=== PATIENT | male | born 1940 | race Caucasian/White ===

== ENCOUNTER → 2016-09-30 | Outpatient (CLI) | payer MEDICARE, BC ==
--- NOTE | 2016-09-30 14:46 | FL ---
EXAMINATION TYPE: FL barium swallow DATE OF EXAM: 09/30/2016 CLINICAL HISTORY: Dysphagia TECHNIQUE: A single contrast exam performed COMPARISON: None FINDINGS: The esophagus shows normal motility and emptying into the stomach. There is no hiatal herni a, however, there is gastroesophageal reflux. There are tertiary contractions of esophagus compatible with dysmotility. No intraluminal filling defect or obstruction. IMPRESSION: 1. Dysmotility 2. Mild to moderate gastroesophageal reflux
--- NOTE | 2016-09-30 16:34 | CT ---
EXAMINATION TYPE: CT chest wo con DATE OF EXAM: 09/30/2016 COMPARISON: NONE HISTORY: Sarcoidosis CT DLP: 1206 mGycm. Automated Exposure Control for Dose Reduction was Utilized. TECHNIQUE: CT scan of the thorax is performed without IV contrast. FINDINGS: There is subpleural nodularity and pleural based thickening bilaterally the nodules measuri ng less than 5 mm. Areas of scattered subsegmental consolidation suggestive of scar or atelectasis. B asilar bronchiectasis noted. No consolidative pneumonia or pleural effusion. There is very mild inter lobular septal thickening at the lung base. No suspicious pulmonary nodules. Calcifications in the hi lum and mediastinum likely related to previous granulomatous disease. Hypertrophic and degenerative change of the spine. Coronary artery calcification seen. Indeterminate right renal lesion by noncontrast technique IMPRESSION: 1. Subsegmental areas of consolidation likely on the basis of scar or atelectasis. 2. Calcifications of multiple lymph nodes correlate for granulomatous disease 3. Basilar bronchiectasis. 4. minimal interlobular septal thickening compatible with minimal interstitial lung disease. 5. Indeterminate right renal lesion by noncontrast technique. Hyperdense 8 mm lesion anterior pole le ft kidney likely related to hemorrhagic cyst. Confirm with ultrasound.
== END | disposition home or self-care (01) ==
LOC: RADCTMAIN 12:49
PROVIDERS: ATTEND Family Medicine
DX: K21.9 Gastro-esophageal reflux disease without esophagitis (principal); J47.9 Bronchiectasis, uncomplicated; R91.8 Other nonspecific abnormal finding of lung field
CPT/HCPCS: 71250; 74220

== ENCOUNTER → 2016-10-21 | Outpatient (CLI) | payer MEDICARE, BC ==
--- NOTE | 2016-10-21 15:35 | US ---
EXAMINATION TYPE: US kidneys/renal and bladder DATE OF EXAM: 10/21/2016 COMPARISON: NONE CLINICAL HISTORY: 76-year-old male [id number] DISORDERS OF KIDNEY AND URETER. TECHNIQUE: Multiple sonographic images of the kidneys and bladder are obtained. FINDINGS: Right Kidney: 1.2 x 6.4 x 7.6 cm without hydronephrosis. A few scattered cysts are present, largest measuring up to 4.1 cm at the lower pole. Left Kidney: 14.0 x 6.2 x 8.3 cm without hydronephrosis. Scattered cysts are present, largest measuri ng 1.8 cm at the upper pole. This dominant cyst appears complex with internal septation possibly some mural-based nodularity. No gross abnormality of the urine distended bladder. Neither ureteral jet is seen during the course o f the exam. IMPRESSION: 1. No hydronephrosis. 2. Bilateral renal cysts measuring up to 4.1 cm. 3. A complex renal cyst is present at the left upper pole. There is an internal septation and questio nable mural-based nodularity. Recommend 3 month follow-up ultrasound to reassess.
== END | disposition home or self-care (01) ==
LOC: RADUSWWP 14:40
PROVIDERS: ATTEND Family Medicine
DX: N28.1 Cyst of kidney, acquired (principal)
CPT/HCPCS: 76770

== ENCOUNTER 2023-10-23 19:28 | Inpatient (IN) | payer MEDICARE, BC ==
[2023-10-23] MEDS: ACETAMINOPHEN TAB 500 MG TAB PO STA (21:15)
[2023-10-23] MEDS: hydrALAZINE HCL 20 MG/ML 1 ML VIAL IVP STA ×2 (21:16→22:48)
[2023-10-23] MEDS: SODIUM CHLORIDE 0.9% 500 ML 500 ML IV STA (21:16)
[2023-10-23 21:20] LABS: Basophils % (A) 0 %; Eosinophils # (A) 0.3 k/uL (0-0.7); Eosinophils % (A) 3 %; HCT 37.3 % (39.0-53.0); HGB 11.7 gm/dL (13.0-17.5); Lymphocytes # (A) 1.7 k/uL (1.0-4.8); Lymphocytes % (A) 20 %; MCH 30.7 pg (25.0-35.0); MCHC 31.3 g/dL (31.0-37.0); MCV 98.3 fL (80.0-100.0); Mean Platelet Volume 7.9; Monocytes # (A) 0.6 k/uL (0-1.0); Monocytes % (A) 8 %; Neutrophils # (A) 5.3 k/uL (1.3-7.7); Neutrophils % (A) 66 %; Platelet Count 257 k/uL (150-450); RBC 3.79 m/uL (4.30-5.90); RDW 14.1 % (11.5-15.5); WBC 8.1 k/uL (3.8-10.6)
[2023-10-23 21:54] LABS: ALT 12 U/L (4-49); AST 22 U/L (17-59); African American GFR (CKD) 88 (>60 ml/min/1.73 sqM); Albumin 3.6 g/dL (3.5-5.0); Alkaline Phosphatase 52 U/L (38-126); Anion Gap 8 mmol/L; Blood Urea Nitrogen 32 mg/dL (9-20); Calcium 8.9 mg/dL (8.4-10.2); Carbon Dioxide 25 mmol/L (22-30); Chloride 106 mmol/L (98-107); Glucose 85 mg/dL (74-99); Non-African American GFR(CKD) 76 (>60 ml/min/1.73 sqM); Potassium 4.3 mmol/L (3.5-5.1); Sodium 139 mmol/L (137-145); Total Bilirubin 0.4 mg/dL (0.2-1.3); Total Protein 5.9 g/dL (6.3-8.2)
--- NOTE | 2023-10-23 22:45 | CT ---
EXAMINATION TYPE: CT brain wo con DATE OF EXAM: 10/23/2023 COMPARISON: None INDICATION: Left temporal WIGGINS DLP: Combined DLP of 1875.9 mGycm, Automated exposure control for dose reduction was used. CONTRAST: None CT of the brain is performed utilizing 3 mm thick sections through the posterior fossa and 3 mm thick sections through the remaining calvarium. Study is performed within 24 hours of arrival to the hosp ital. No abnormal hyperdensity is present to suggest an acute intracranial hemorrhage. No mass lesion is evident. No acute infarcts are evident. Periventricular white matter hypodensity is present, likely on the bas is of chronic white matter ischemic changes. Ventricles and sulci are prominent for the patient age. Paranasal sinuses and mastoid air cells within the [id number] are clear. IMPRESSION: 1. Mild atrophy with periventricular white matter ischemic type changes. 2. No acute intracranial process. Follow-up MRI can be performed as clinically indicated
[2023-10-23] MEDS: MORPHINE SULFATE 2 MG/ML SYRINGE IVP STA (22:48)
--- NOTE | 2023-10-23 22:51 | CT ---
EXAMINATION TYPE: CT angio head DATE OF EXAM: 10/23/2023 HISTORY: Left temporal WIGGINS. ABC COMPARISON: None CT DLP: Combined DLP of 1875.9 mGycm. Automated Exposure Control for Dose Reduction was Utilized. TECHNIQUE: CTA scan of the neck is performed with IV Contrast, patient injected with 65 cc mL of Iso leif 370, axial images are obtained, coronal and sagittal reformatted images are reviewed. Three-D rec onstructed images are created on an independent workstation and reviewed. Source images are reviewed . FINDINGS: Cervical of [place]: Vertebral basilar system appears normal. Posterior cerebral vasculature is unrema rkable. Internal carotid arteries bifurcate normally into A1 and M1 segments. A2 segments are normal. The anterior communicating artery is patent. The right posterior communicating artery is patent. The left posterior communicating artery is absent. Other: Some sphenoid sinusitis may be present. IMPRESSION: 1. Normal [place] of [place] NASCET criteria was used in interpretation of this exam?
--- NOTE | 2023-10-23 23:44 | ED ---
Headache HPI - General Chief Complaint: Headache Stated Complaint: L head pain Time Seen by Provider: 10/23/23 19:53 Mode of arrival: ambulatory Limitations: no limitations - History of Present Illness Initial Comments: 83-year-old male presenting with chief complaint of headache. Pain has been ongoing for about 2 weeks. It is in the left temporal region. He states that it is a throbbing pain. He has been taking Tylenol with no relief. No nausea or vomiting. Patient has history of macular degeneration and glaucoma and at baseline has poor vision, states that he does not notice any acute changes. No new dizziness. No numbness or tingling no fever. No URI-like symptoms. Does not get worse with chewing. He has had a cough recently and has been spitting up foamy sputum. Admits to shortness of breath, no chest pain. - Related Data Allergies Allergy/AdvReac Type Severity Reaction Status Date / Time Unable to Assess Allergy Verified 10/23/23 19:45 Review of Systems ROS Statement: Those systems with pertinent positive or pertinent negative responses have been documented in the HPI. ROS Other: All systems not noted in ROS Statement are negative. Past Medical History Past Medical History: Hypertension Additional Past Medical History / Comment(s): macular degeneration , chronic uti History of Any Multi-Drug Resistant Organisms: None Reported Past Surgical History: Orthopedic Surgery Smoking Status: Never smoker Past Alcohol Use History: None Reported Past Drug Use History: None Reported General Exam Limitations: no limitations General appearance: alert, in no apparent distress Head exam: Present: atraumatic, normocephalic Eye exam: Present: normal appearance, PERRL, EOMI Pupils: Present: normal accommodation Neck exam: Present: normal inspection. Absent: meningismus Respiratory exam: Present: normal lung sounds bilaterally. Absent: respiratory distress, wheezes, rales, rhonchi, stridor Cardiovascular Exam: Present: regular rate, normal rhythm, normal heart sounds. Absent: systolic murmur, diastolic murmur, rubs, gallop, clicks Neurological exam: Present: alert, oriented X3 Psychiatric exam: Present: normal affect, normal mood Skin exam: Present: warm, dry Course Vital Signs 10/23/23 10/23/23 10/23/23 19:41 21:25 21:30 Temperature 97.4 F L Pulse Rate 77 74 Respiratory 20 20 Rate Blood Pressure 201/77 197/90 197/93 O2 Sat by Pulse 95 94 L 94 L Oximetry 10/23/23 10/23/23 10/23/23 21:45 22:00 22:30 Temperature Pulse Rate 71 Respiratory 20 Rate Blood Pressure 199/95 194/83 198/88 O2 Sat by Pulse 95 94 L 96 Oximetry 10/23/23 10/24/23 10/24/23 22:45 00:00 00:59 Temperature Pulse Rate 76 78 78 Respiratory 16 26 H 20 Rate Blood Pressure 148/70 144/67 165/79 O2 Sat by Pulse 98 94 L 94 L Oximetry 10/24/23 10/24/23 01:56 02:01 Temperature Pulse Rate 79 87 Respiratory 19 19 Rate Blood Pressure 174/80 172/81 O2 Sat by Pulse 95 95 Oximetry Medical Decision Making - Medical Decision Making 83-year-old male presenting with chief complaint of headache located in the left temporal region. Has been ongoing for 2 weeks. No acute vision changes. History and physical exam are conducted. Negative CT of the brain without contrast and CTA. CRP is 1.0, ESR is sent out. Decreases the likelihood of temporal arteritis. During his visit the patient became progressively short of breath. Denies chest pain. Chest x-ray was obtained which shows cardiomegaly and effusion. Patient has been having frothy sputum and lower extremity swelling. BNP 8390. Presentation consistent with CHF. Patient has no history of CHF according to his son. Patient was treated with 40 mg Lasix. He will be admitted. Patient and his son are in agreement with this plan. I discussed this case with my attending Dr. Arreguin. Was pt. sent in by a medical professional or institution (, PA, PLANT OPERATOR, urgent care, hospital, or prison...) When possible be specific @ -No Did you speak to anyone other than the patient for history (EMS, parent, family, police, friend...)? What history was obtained from this source @ -History supplemented by the patient's son Did you review nursing and triage notes (agree or disagree)? Why? @ -I reviewed and agree with nursing and triage notes Were old charts reviewed (outside hosp., previous admission, EMS record, old EKG, old radiological studies, urgent care reports/EKG's, prison records)? Report findings @ -No old charts were reviewed Differential Diagnosis (chest pain, altered mental status, abdominal pain women, abdominal pain men, vaginal bleeding, weakness, fever, dyspnea, syncope, headache, dizziness, GI bleed, back pain, seizure, CVA, palpatations, mental health, musculoskeletal)? @ -MDM Differential Headache: Migraine, tension, cluster, carbon monoxide, central venous thrombosis, pension karma temporal arteritis, acute closure glaucoma, intercranial hemorrhage, mastoiditis, sinusitis, head injury this is not meant to be an all-inclusive list. EKG interpreted by me (3pts min.). @ -EKG shows sinus rhythm ventricular rate 73. OR interval 184. QRS 133. QT 411. QTc 437. X-rays interpreted by me (1pt min.). @ -X-ray shows pulmonary vascular congestion, correlate for mild CHF. Trace bilateral pleural effusions. CT interpreted by me (1pt min.). @ -Brain CT shows mild atrophy with periventricular white matter ischemic type changes. No acute intracranial process. CTA shows normal [place] U/S interpreted by me (1pt. min.). @ -None done What testing was considered but not performed or refused? (CT, X-rays, U/S, labs)? Why? @ -None What meds were considered but not given or refused? Why? @ -None Did you discuss the management of the patient with other professionals (professionals i.e. , PA, PLANT OPERATOR, lab, RT, psych nurse, social work faculty member, supervisor delivery department, teacher, chief privacy officer, returned case inspector)? Give summary @ -I spoke with Dr. Briones who accepted admission Was smoking cessation discussed for >3mins.? @ -No Was critical care preformed (if so, how long)? @ -No Were there social determinants of health that impacted care today? How? (Homelessness, low income, unemployed, alcoholism, drug addiction, transportation, low edu. Level, literacy, decrease access to med. care, skilled nursing, rehab)? @ -No Was there de-escalation of care discussed even if they declined (Discuss DNR or withdrawal of care, Hospice)? DNR status @ -No What co-morbidities impacted this encounter? (DM, HTN, Smoking, COPD, CAD, Cancer, CVA, ARF, Chemo, Hep., AIDS, mental health diagnosis, sleep apnea, morbid obesity)? @ -None Was patient admitted / discharged? Hospital course, mention meds given and route, prescriptions, significant lab abnormalities, going to OR and other pertinent info. @ -Admitted, see above for details Undiagnosed new problem with uncertain prognosis? @ -No Drug Therapy requiring intensive monitoring for toxicity (Heparin, Nitro, Insulin, Cardizem)? @ -No Were any procedures done? @ -No Diagnosis/symptom? @ -CHF Acute, or Chronic, or Acute on Chronic? @ -Acute Uncomplicated (without systemic symptoms) or Complicated (systemic symptoms)? @ -Located Side effects of treatment? @ -No Exacerbation, Progression, or Severe Exacerbation? @ -No Poses a threat to life or bodily function? How? (Chest pain, USA, NH, pneumonia, PE, COPD, DKA, ARF, appy, cholecystitis, CVA, Diverticulitis, Homicidal, Suicidal, threat to staff... and all critical care pts) @ -Yes - Lab Data Result diagrams: 10/23/23 20:44 10/23/23 20:44 Lab Results 10/23/23 10/23/23 10/23/23 Range/Units 20:44 20:44 20:44 WBC 8.1 (3.8-10.6) k/uL RBC 3.79 L (4.30-5.90) m/uL Hgb 11.7 L (13.0-17.5) gm/dL Hct 37.3 L (39.0-53.0) % MCV 98.3 (80.0-100.0) fL MCH 30.7 (25.0-35.0) pg MCHC 31.3 (31.0-37.0) g/dL RDW 14.1 (11.5-15.5) % Plt Count 257 (150-450) k/uL MPV 7.9 Neutrophils % 66 % Lymphocytes % 20 % Monocytes % 8 % Eosinophils % 3 % Basophils % 0 % Neutrophils # 5.3 (1.3-7.7) k/uL Lymphocytes # 1.7 (1.0-4.8) k/uL Monocytes # 0.6 (0-1.0) k/uL Eosinophils # 0.3 (0-0.7) k/uL Basophils # 0.0 (0-0.2) k/uL Sodium 139 (137-145) mmol/L Potassium 4.3 (3.5-5.1) mmol/L Chloride 106 (98-107) mmol/L Carbon Dioxide 25 (22-30) mmol/L Anion Gap 8 mmol/L BUN 32 H (9-20) mg/dL Creatinine 0.92 (0.66-1.25) mg/dL Est GFR (CKD-EPI)AfAm 88 (>60 ml/min/1.73 sqM) Est GFR (CKD-EPI)NonAf 76 (>60 ml/min/1.73 sqM) Glucose 85 (74-99) mg/dL Calcium 8.9 (8.4-10.2) mg/dL Total Bilirubin 0.4 (0.2-1.3) mg/dL AST 22 (17-59) U/L ALT 12 (4-49) U/L Alkaline Phosphatase 52 (38-126) U/L C-Reactive Protein 1.0 H (<1.0) mg/dL NT-Pro-B Natriuret Pep 8390 pg/mL Total Protein 5.9 L (6.3-8.2) g/dL Albumin 3.6 (3.5-5.0) g/dL Disposition Clinical Impression: CHF (congestive heart failure) Disposition: ADMITTED IP TO THIS HOSP Condition: Serious Time of Disposition: 01:31
[2023-10-24] MEDS: traMADol 50 MG TAB PO STA (00:58)
[2023-10-24] MEDS ORDERED: NALOXONE 0.4 MG/ML 1 ML VIAL IV PRN (01:27)
[2023-10-24] MEDS: FUROSEMIDE 10 MG/ML 4 ML VIAL IV STA (01:53)
--- NOTE | 2023-10-24 02:32 | XR ---
EXAM: XR Chest, 2 Views CLINICAL HISTORY: ITS.REASON XR Reason: SOB TECHNIQUE: Frontal and lateral views of the chest. COMPARISON: No relevant prior studies available. FINDINGS: Lungs: Pulmonary vascular congestion, correlate for mild CHF. Trace bilateral pleural effusions. No consolidation. Pleural space: See above. Heart: Cardiomegaly. Mediastinum: Unremarkable. Normal mediastinal contour. Bones/joints: Unremarkable. No acute fracture. IMPRESSION: Pulmonary vascular congestion, correlate for mild CHF. Trace bilateral pleural effusions.
[2023-10-24] MEDS: MELATONIN 5 MG TABLET PO STA (03:03)
[2023-10-24 04:29] LABS: Erythrocyte Sedimentation Rate 22 mm/Hr (0-20)
--- NOTE | 2023-10-24 05:11 | P.HPIM ---
History of Present Illness H&P Date: 10/24/23 Chief Complaint: Shortness of breath Patient is a 83-year-old male with a history of hypertension came to the ER with the complaint of left-sided temporal headache since 3 weeks. Patient had an extensive ER evaluation for left temporal headache including CRP, ESR, CT brain, and CTA head. Investigation is unremarkable and there is decreased likelihood of temporal arteritis, intracranial hemorrhage and/or other intracranial abnormality. patient has been feeling short of breath and fatigue since 3 weeks. Patient reports chest pain, tachycardia, dyspnea upon exertion, orthopnea, and bilateral leg edema. Patient reports mild, intermittent, substernal chest pain worse with physical exertion and resolves with rest. Patient recalls no previous episodes of shortness of breath and chest pain. Patient denies recent hospitalization, recent travel. patient denies cough, diaphoresis, abdominal pain, diarrhea or constipation, urinary issues or weakness and numbness in upper and lower extremities. He is unsure of past history of coronary artery disease and states that his son is better aware of his past medical and surgical history. His son was not present at the time of the interview. EKG done in the ER shows heart rate of 73 bpm, right bundle branch block, poor R wave progression, nonspecific STT wave changes, no QTc prolongation. Chest x-ray done in the ER shows a pulmonary vascular congestion correlating for mild congestive heart failure with trace bilateral pleural effusion. Review of systems: Pertinent positives and negatives as discussed in HPI, a complete review of systems was performed and all other systems are negative. Social history: Tobacco: None Alcohol: None Recreational drugs: None Travel: None Occupation: Retired Family History: None 100 Physical examination: Vital signs reviewed General: non toxic, no distress, appears at stated age, normal weight Derm: no unusual rashes/lesions, warm Head: atraumatic, normocephalic, symmetric Eyes: EOMI, no lid lag, anicteric sclera, pupils equal round reactive to light ENT: Nose and ears atraumatic Neck: No cervical lymphadenopathy, trachea midline, supple Mouth: no lip lesion, mucus membranes moist Cardiovascular: S1S2 reg, no murmur, positive dorsalis pedis pulse bilateral, grade 1 bilateral pitting edema in lower extremities. Lungs: Diminished breath sounds on lower lung bases. no rhonchi, no rales, no accessory muscle use Abdominal: soft, nontender to palpation, no guarding Ext: muscle strength 4 out of 5 in all 4 extremities grossly, no gross muscle atrophy, no contractures, Neuro: CN II-XI grossly intact, no gross focal neuro deficits Psych: Alert, oriented, appropriate affect Assessment/Plan: 83-year-old male with history of hypertension who came to the ER originally for complaint of left-sided temporal headache had an extensive ER evaluation which decreases the likelihood of temporal arteritis, intracranial hemorrhage and or other intracranial abnormality. Patient has been complaining of shortness of breath since 3 weeks associated with mild intermittent chest pain, orthopnea, and bilateral peripheral edema. exertional dyspnea suspected Acute congestive heart failure Chest x-ray shows pulmonary vascular congestion correlating for mild congestive heart failure with trace bilateral pleural effusion IV Lasix 40 mg daily check Echocardiogram , no previous echo in chart for comparison consult Cardiology Continue cardiac monitoring Continue monitoring O2 saturation Check daily weight Fluid restriction 2 L daily proBNP 8390 Supplemental oxygen as needed check trops -Left-sided temporal headache rule out temporal arteritis Neurology consult Elevated ESR [address] angio of the head shows normal [place] CT brain shows no acute intracranial process, no acute intracranial hemorrhage. elevated BP without a diagnosis of hypertension no focal neuro deficits continue to monitor for now patient received couple doses of IV hydralazine in the ED if BP continues to be elevated while inpatient , consider starting antihypertensive meds currently BP is within normal limit s Mild anemia Hemoglobin 11.7 Patient denies GI bleeding Continue to monitor DVT prophylaxis: Lovenox 40 mg subcu daily The patient is admitted with an anticipated more than 2 midnight stay for evaluation of congestive heart failure, and ruling out temporal arteritis CODE STATUS: Full Discussed with: Patient Anticipated discharge place: Home Past Medical History Past Medical History: Hypertension Additional Past Medical History / Comment(s): macular degeneration , chronic uti History of Any Multi-Drug Resistant Organisms: None Reported Past Surgical History: Orthopedic Surgery Smoking Status: Never smoker Past Alcohol Use History: None Reported Past Drug Use History: None Reported Medications and Allergies Allergies Allergy/AdvReac Type Severity Reaction Status Date / Time Unable to Assess Allergy Verified 10/23/23 19:45 Physical Exam Vitals: Vital Signs Temp Pulse Resp BP Pulse Ox 10/24/23 02:01 87 19 172/81 95 10/24/23 01:56 79 19 174/80 95 10/24/23 00:59 78 20 165/79 94 L 10/24/23 00:00 78 26 H 144/67 94 L 10/23/23 22:45 76 16 148/70 98 10/23/23 22:30 71 20 198/88 96 10/23/23 22:00 194/83 94 L 10/23/23 21:45 199/95 95 10/23/23 21:30 197/93 94 L 10/23/23 21:25 74 20 197/90 94 L 10/23/23 19:41 97.4 F L 77 20 201/77 95 Intake and Output 10/23/23 10/23/23 10/24/23 14:59 22:59 06:59 Intake Total 500 Output Total 1450 Balance -950 Intake: Intake, IV Titration 500 Amount Sodium Chloride 0.9% 500 500 ml 500 ml @ 999 mls/hr IV .Q31M STA Rx#:[id number] Output: Urine 1450 Other: Weight 99.337 kg Results CBC & Chem 7: 10/23/23 20:44 10/23/23 20:44 Labs: Abnormal Lab Results - Last 24 Hours (Table) 10/23/23 10/23/23 Range/Units 20:44 20:44 RBC 3.79 L (4.30-5.90) m/uL Hgb 11.7 L (13.0-17.5) gm/dL Hct 37.3 L (39.0-53.0) % ESR 22 H (0-20) mm/Hr BUN 32 H (9-20) mg/dL C-Reactive Protein 1.0 H (<1.0) mg/dL Total Protein 5.9 L (6.3-8.2) g/dL Assessment and Plan Assessment: I have seen and evaluated the patient today. I Discussed the case with the resident and agree with the resident's findings I edited the assessment and plan as necessary as documented in the resident's note.
[2023-10-24] MEDS ORDERED: FUROSEMIDE 10 MG/ML 4 ML VIAL IV SCH (09:00)
[2023-10-24] MEDS: ASPIRIN 81 MG PO SCH (09:47)
[2023-10-24] MEDS: ENOXAPARIN 40 MG/0.4 ML SYRINGE SQ SCH (09:47)
[2023-10-24] MEDS: FUROSEMIDE 10 MG/ML 4 ML VIAL IV SCH (09:47)
[2023-10-24] MEDS: METOPROLOL TARTRATE 12.5 MG TAB PO SCH (09:47)
--- NOTE | 2023-10-24 10:33 | P.CRDCN ---
History of Present Illness History of present illness: HISTORY OF PRESENT ILLNESS: This is a 83-year-old male with a past medical history significant for hypertension and congestive heart failure. Patient does not follow with a special forces specialist. We have been asked to see the patient in consultation for congestive heart failure. Patient examined at the bedside in the emergency room. There is no family present. The patient states he presented to the hospital with a chief complaint of a headache that has been ongoing for the past 2 to 3 weeks. The patient also reports he has been feeling short of breath which started about 3 to 4 weeks ago. He currently denies any chest pain or pressure. Vital signs are stable. DIAGNOSTICS: - EKG reveals sinus mechanism with no signs of acute ischemia. - Chest xray pulmonary vascular congestion, correlate for mild CHF. Trace bilateral pleural effusions. - Laboratory data: WBC 8.1. Hemoglobin 11.7. Platelet count 257. Sodium 139. Potassium 4.3. BUN 32. Creatinine 0.92. Troponin 0.120. proBNP 8390. - Current home cardiac medications include lisinopril 20 mg daily and Demadex 10 mg daily. REVIEW OF SYSTEMS: At the time of my exam: CONSTITUTIONAL: Denies fever or chills. HEENT: Headache. Denies blurred vision, vision changes, or eye pain. Denies hemoptysis CARDIOVASCULAR: Denies chest pain. Denies orthopnea. Denies PND. Denies palpitations RESPIRATORY: Denies shortness of breath. GASTROINTESTINAL: Denies abdominal pain. Denies nausea or vomiting. HEMATOLOGIC: Denies bleeding disorders. GENITOURINARY: Denies any blood in urine. SKIN: Denies pruitis. Denies rash. PHYSICAL EXAM: VITAL SIGNS: Reviewed. GENERAL: Well-developed in no acute distress. HEENT: Head is normocephalic. Pupils are equal, round. Sclerae anicteric. Mucous membranes of the mouth are moist. Neck supple. No JVD or thyromegaly LUNGS: Respirations even and unlabored. Lungs essentially clear to auscultation bilaterally. HEART: Regular rate and rhythm. S1 and S2 heard. ABDOMEN: Soft. Nondistended. Nontender. EXTREMITIES: Normal range of motion. No clubbing or cyanosis. Peripheral pulses intact. 1+ bilateral lower extremity edema NEUROLOGIC: Awake and alert. Oriented x 3. ASSESSMENT: Headache x 3 weeks, etiology unclear Acute on chronic heart failure, type unknown, echo pending Elevated troponin x 1, suspect type II ME due to oxygen supply and demand mismatch secondary to acute CHF, non-STEMI less likely Hypertension Obesity: BMI 33.3 PLAN: Obtain 2D echo to assess cardiac structure and function Trend troponins. May continue with Lovenox at this time. No need to initiate IV heparin at this time unless troponins trend upward. Begin IV Lasix 40 mg every 12 hours Add aspirin 81 mg daily, atorvastatin 40 mg at night, and metoprolol tartrate 12.5 mg twice a day Neurology has been consulted due to persistent headache. Await recommendations Further recommendations pending patient course Nurse practitioner note has been reviewed by physician. Signing provider agrees with the documented findings, assessment, and plan of care documented by SENIOR RESEARCH MANAGER as a scribe. Past Medical History Past Medical History: Hypertension Additional Past Medical History / Comment(s): macular degeneration , chronic uti History of Any Multi-Drug Resistant Organisms: None Reported Past Surgical History: Orthopedic Surgery Smoking Status: Never smoker Past Alcohol Use History: None Reported Past Drug Use History: None Reported Medications and Allergies Home Medications Medication Instructions Recorded Confirmed Type Brimonidine Tartrate [Alphagan P 1 drop BOTH EYES BID 10/24/23 10/24/23 History 0.2% Ophth Soln] Latanoprost [Latanoprost 0.005%] 1 drop BOTH EYES HS 10/24/23 10/24/23 History Tamsulosin [Flomax] 0.4 mg PO HS 10/24/23 10/24/23 History Timolol 0.25% Ophth Soln [Timoptic 1 drop BOTH EYES BID 10/24/23 10/24/23 History 0.25% Ophth Soln] Torsemide [Demadex] 10 mg PO DAILY 10/24/23 10/24/23 History lisinopriL [Zestril] 20 mg PO DAILY 10/24/23 10/24/23 History Allergies Allergy/AdvReac Type Severity Reaction Status Date / Time Unable to Assess Allergy Verified 10/24/23 09:12 Physical Exam Vitals: Vital Signs Temp Pulse Resp BP Pulse Ox 10/24/23 06:00 98.6 F 68 20 139/73 94 L 10/24/23 02:01 87 19 172/81 95 10/24/23 01:56 79 19 174/80 95 10/24/23 00:59 78 20 165/79 94 L 10/24/23 00:00 78 26 H 144/67 94 L 10/23/23 22:45 76 16 148/70 98 10/23/23 22:30 71 20 198/88 96 10/23/23 22:00 194/83 94 L 10/23/23 21:45 199/95 95 10/23/23 21:30 197/93 94 L 10/23/23 21:25 74 20 197/90 94 L 10/23/23 19:41 97.4 F L 77 20 201/77 95 Intake and Output 10/23/23 10/24/23 10/24/23 22:59 06:59 14:59 Intake Total 500 Output Total 1450 Balance -950 Intake: Intake, IV Titration 500 Amount Sodium Chloride 0.9% 500 500 ml 500 ml @ 999 mls/hr IV .Q31M STA Rx#:[id number] Output: Urine 1450 Other: Weight 99.337 kg Results 10/23/23 20:44 10/23/23 20:44 Cardiac Enzymes 10/23/23 10/24/23 Range/Units 20:44 07:37 AST 22 (17-59) U/L Troponin I 0.120 H* (0.000-0.034) ng/mL CBC 10/23/23 Range/Units 20:44 WBC 8.1 (3.8-10.6) k/uL RBC 3.79 L (4.30-5.90) m/uL Hgb 11.7 L (13.0-17.5) gm/dL Hct 37.3 L (39.0-53.0) % Plt Count 257 (150-450) k/uL Comprehensive Metabolic Panel 10/23/23 Range/Units 20:44 Sodium 139 (137-145) mmol/L Potassium 4.3 (3.5-5.1) mmol/L Chloride 106 (98-107) mmol/L Carbon Dioxide 25 (22-30) mmol/L BUN 32 H (9-20) mg/dL Creatinine 0.92 (0.66-1.25) mg/dL Glucose 85 (74-99) mg/dL Calcium 8.9 (8.4-10.2) mg/dL AST 22 (17-59) U/L ALT 12 (4-49) U/L Alkaline Phosphatase 52 (38-126) U/L Total Protein 5.9 L (6.3-8.2) g/dL Albumin 3.6 (3.5-5.0) g/dL Current Medications Generic Name Dose Route Start Last Admin Trade Name Freq PRN Reason Stop Dose Admin Acetaminophen 650 mg 10/24/23 01:27 Acetaminophen Tab 325 Mg Tab PO Q6HR PRN Mild Pain or Fever > 100.5 Hydrocodone Bitart/Acetaminophen 1 each 10/24/23 01:27 Hydrocodone/Apap 5-325mg 1 Each Tab PO Q4HR PRN Moderate Pain (Scale 4 to 6) Aspirin 81 mg 10/24/23 09:00 Aspirin 81 Mg PO DAILY INDY Atorvastatin Calcium 40 mg 10/24/23 21:00 Atorvastatin 40 Mg Tab PO HS INDY Enoxaparin Sodium 40 mg 10/24/23 09:00 Enoxaparin 40 Mg/0.4 Ml Syringe SQ DAILY INDY Furosemide 40 mg 10/24/23 09:00 Furosemide 10 Mg/Ml 4 Ml Vial IV DAILY INDY Naloxone HCl 0.2 mg 10/24/23 01:27 Naloxone 0.4 Mg/Ml 1 Ml Vial IV Q2M PRN Opioid Reversal Intake and Output 10/23/23 10/24/23 10/24/23 22:59 06:59 14:59 Intake Total 500 Output Total 1450 Balance -950 Intake: Intake, IV Titration 500 Amount Sodium Chloride 0.9% 500 500 ml 500 ml @ 999 mls/hr IV .Q31M STA Rx#:[id number] Output: Urine 1450 Other: Weight 99.337 kg 10/23/23 20:44 10/23/23 20:44
--- NOTE | 2023-10-24 12:58 | P.CNNES ---
History of Present Illness Consult date: 10/24/23 Requesting physician: Russ Briones Reason for Consult: Headache History of Present Illness: Patient is a 83-year-old male came to the hospital yesterday at 7:28 PM for new onset headache. Patient states he has developed headache involving the left catholic region about 6 weeks ago, that extends to the left frontal region as well. He believes that the headache is occurring because he was laying on the left side. He started laying on the right side but the headache still bothers. Even in these 6 weeks it has been off and on. Headache once happens last for couple days, goes away for 3 days and then comes back. He rates his headache 4/10, pressure type headache, denies any nausea or vomiting although he does feel light sensitive but denies any noise sensitivity. No previous history of migraines. He has tried Tylenol. Patient has history of glaucoma and macular degeneration. He takes multiple eyedrops for it. He has not seen a pre billing specialist for last couple years. He believes his vision has been getting worse lately. Patient states in the last 6 weeks he has been noticing more frequent of visual disturbance consisting of seeing blue and red speckled lines or patterns like bricks in his vision. He had it before, but has got worse in the last 6 weeks along with his vision. Patient admits to having some sinus issues, but comes and goes, and once in a while it is worse. He denies any fever. He admits to losing weight of about 50 pounds in the last 2 months from June till end of July while he was living in the [facility] in [place]. At present he lives with his son. Vital signs on arrival blood pressure 201/77, pulse rate 77 temperature 97.4. Repeat blood pressure is still high at 197/90, 197/93 and the most recent blood pressure is 160/79. Blood test shows normal CBC with slightly decreased hemoglobin 11.7. CMP is normal. Troponin is mildly elevated 0.120. ESR 22, CRP 1.0/1.0. CT head showed mild atrophy with periventricular white matter ischemic type changes. No acute intracranial process. Follow-up MRI can be performed as clinically indicated. I personally reviewed CT head, agree with the findings. However on my review, there is evidence of an acute left sphenoid sinusitis. There is large polyp in the left maxillary sinus as well. This is a new finding as compared to the last CT head from 09/02/2011. CTA of the head is normal with normal tolowa dee-ni' of [place]. Home medications include lisinopril 20 mg, Demadex 10 mg, Flomax 0.4 mg and multiple eyedrops. Patient denies any jaw claudication. He does have hypertension, denies diabetes. Denies any tobacco or alcohol use. He has been using walker for last couple years and uses it all the time. Review of Systems Constitutional: Denies chills, Denies fever Eyes: bilateral blurred vision, bilateral photophobia, denies decreased vision, denies diplopia, denies pain, denies loss of vision Ears: bilateral: decreased hearing, deny: earache Ears, nose, mouth and throat: Reports headache, Denies vertigo Cardiovascular: Denies chest pain, Denies shortness of breath Respiratory: Reports cough, Denies excessive sputum Gastrointestinal: Denies abdominal pain, Denies diarrhea, Denies nausea, Denies vomiting Musculoskeletal: Reports low back pain, Reports neck pain (Once in a while), Denies myalgias Integumentary: Denies pruritus, Denies rash Neurological: Reports as per HPI Endocrine: Reports fatigue, Reports weight change Past Medical History Past Medical History: Hypertension Additional Past Medical History / Comment(s): macular degeneration , chronic uti History of Any Multi-Drug Resistant Organisms: None Reported Past Surgical History: Orthopedic Surgery Smoking Status: Never smoker Past Alcohol Use History: None Reported Past Drug Use History: None Reported Medications and Allergies Home Medications Medication Instructions Recorded Confirmed Type Brimonidine Tartrate [Alphagan P 1 drop BOTH EYES BID 10/24/23 10/24/23 History 0.2% Ophth Soln] Latanoprost [Latanoprost 0.005%] 1 drop BOTH EYES HS 10/24/23 10/24/23 History Tamsulosin [Flomax] 0.4 mg PO HS 10/24/23 10/24/23 History Timolol 0.25% Ophth Soln [Timoptic 1 drop BOTH EYES BID 10/24/23 10/24/23 History 0.25% Ophth Soln] Torsemide [Demadex] 10 mg PO DAILY 10/24/23 10/24/23 History lisinopriL [Zestril] 20 mg PO DAILY 10/24/23 10/24/23 History Allergies Allergy/AdvReac Type Severity Reaction Status Date / Time Unable to Assess Allergy Verified 10/24/23 09:12 Physical Examination - Vital Signs Vital Signs: Vital Signs Temp Pulse Resp BP Pulse Ox 10/24/23 09:44 71 18 160/79 94 L 10/24/23 06:00 98.6 F 68 20 139/73 94 L 10/24/23 02:01 87 19 172/81 95 10/24/23 01:56 79 19 174/80 95 10/24/23 00:59 78 20 165/79 94 L 10/24/23 00:00 78 26 H 144/67 94 L 10/23/23 22:45 76 16 148/70 98 10/23/23 22:30 71 20 198/88 96 10/23/23 22:00 194/83 94 L 10/23/23 21:45 199/95 95 10/23/23 21:30 197/93 94 L 10/23/23 21:25 74 20 197/90 94 L 10/23/23 19:41 97.4 F L 77 20 201/77 95 Intake and Output 10/23/23 10/24/23 10/24/23 22:59 06:59 14:59 Intake Total 500 Output Total 1450 Balance -950 Intake: Intake, IV Titration 500 Amount Sodium Chloride 0.9% 500 500 ml 500 ml @ 999 mls/hr IV .Q31M STA Rx#:[id number] Output: Urine 1450 Other: Weight 99.337 kg Patient is an elderly male, very pleasant, in no acute distress. Patient is alert awake oriented to time place and person. Speech and language functions are normal. Patient can name and repeat very well. No aphasia or dysarthria. Attention, concentration and fund of knowledge is adequate. On cranial nerve examination, pupils are surgical from previous cataract surgery and are equal, round and reacting to light, visual ulrich are full on confrontation, with no neglect on double simultaneous stimulation. Extraocular muscles are intact, although there is slight restriction of the upgaze, and there is no nystagmus. Face is symmetric, tongue protrudes to the midline. Palatal elevation and sensation normal, hearing is mild to moderately decreased and shoulder shrug normal, facial sensation normal. On muscle strength testing, there is no pronator drift and the strength is normal in arms and legs distally and proximally. Deep tendon reflexes are symmetric quite diminished, no more than 1 all over, and plantars downgoing Sensory to touch is equal with no neglect on double simultaneous stimulation. Cerebellar function showed no ataxia for iwdnld-[id number] testing. No dysdiadochokinesia. No ataxia for [id number] testing on either side. Tone and bulk of muscles normal. Gait deferred.. On general examination, there is no carotid bruit or murmur, S1-S2 audible. Chest is clear on consultation. Abdomen is soft nontender. No organomegaly, bowel sounds present. Peripheral pulses are present. There is moderate peripheral edema. Results - Laboratory Findings CBC and BMP: 10/23/23 20:44 10/23/23 20:44 Abnormal Lab Findings: Abnormal Labs 10/23/23 10/23/23 07 20:44 20:44 07:37 RBC 3.79 L Hgb 11.7 L Hct 37.3 L ESR 22 H BUN 32 H Troponin I 0.120 H* C-Reactive Protein 1.0 H Total Protein 5.9 L Assessment and Plan Assessment: * New onset left temporal headache, that extends to the left frontal region, off and on, for the last 6 weeks. Reasons probably multifactorial as mentioned below. * Patient is also noticing some visual disturbance consisting of seeing speckled red/blue lines or brick patterns in the vision, more frequently in the last 6 weeks. Patient does have history of glaucoma, and has not seen pre billing specialist for the last 2 years. Rule out worsening of glaucoma or other ocular problems. * Uncontrolled hypertension, came with blood pressure 201/77. Uncontrolled hypertension may be associated with headaches. * CT scan also showing new onset left sphenoid sinusitis, which is new finding as compared to the last CT from 2012. Patient does not have significant sinus related symptoms however. * Elevated troponins * Macular degeneration Plan: * Recommend ophthalmology consultation to rule out worsening of glaucoma, or other ocular causes of headache. * ESR 22, CRP 1.0, which is very borderline. * Patient has air-fluid level in the left sphenoid sinus noted on the CT scan. May consider course of antibiotic. * Optimize control of blood pressure to normotensive level. * For elevated troponin, cardiology on board. * Dr. Rodriguez will cover neurology service over the weekend. * Thank you for the consult.
--- NOTE | 2023-10-24 15:21 | CA ---
Transthoracic Echo Report Name: Tono Castaneda Age: 83 Gender: M : 1940 Exam Date: 10/24/2023 08:34 Exam Location: [facility] Ht (in): 68 Wt (lb): 219 Ordering Physician: Mendoza Womack Attending/Referring Phys: Welder/Fitter Mendy [place] RDCS Procedure CPT: Indications: fluid overload Cardiac Hx: Technical Quality: Fair Contrast 1: Total Dose (mL): Contrast 2: Total Dose (mL): MEASUREMENTS (Male / Female) Normal Values 2D ECHO LV Diastolic Diameter PLAX 5.5 cm 4.2 - 5.9 / 3.9 - 5.3 cm LV Systolic Diameter PLAX 4.1 cm IVS Diastolic Thickness 1.8 cm 0.6 - 1.0 / 0.6 - 0.9 cm LVPW Diastolic Thickness 1.9 cm 0.6 - 1.0 / 0.6 - 0.9 cm LV Relative Wall Thickness 0.7 RV Internal Dim ED PLAX 3.0 cm LVOT Diameter 2.5 cm LA Systolic Diameter LX 5.1 cm 3.0 - 4.0 / 2.7 - 3.8 cm LV Diastolic Volume MOD BP 89.1 cm??? 67 - 155 / 56 - 104 cm??? LV Systolic Volume MOD BP 29.3 cm??? - 58 / 19 - 49 cm??? LV Ejection Fraction MOD BP 67.1 % >= 55 % LV Cardiac Index MOD BP 1914.7 cm???/min???m??? LV Diastolic Volume MOD 4C 114.0 cm??? LV Systolic Volume MOD 4C 55.8 cm??? LV Ejection Fraction MOD 4C 51.0 % LV Cardiac Index MOD 4C 1862.7 cm???/min???m??? LV Diastolic Length 4C 9.7 cm LV Systolic Length 4C 8.1 cm LV Diastolic Volume MOD 2C 84.3 cm??? LV Systolic Volume MOD 2C 40.3 cm??? LV Ejection Fraction MOD 2C 52.2 % LV Cardiac Index MOD 2C 1408.9 cm???/min???m??? LV Diastolic Length 2C 9.6 cm LV Systolic Length 2C 7.8 cm LA Volume 67.4 cm??? - 58 / 22 - 52 cm??? LA Volume Index 30.4 cm???/m??? 16 - 28 cm???/m??? M-MODE Aortic Root Diameter MM 4.2 cm AV Cusp Separation MM 2.6 cm DOPPLER AV Peak Velocity 208.5 cm/s AV Peak Gradient 17.4 mmHg AV Mean Velocity 133.4 cm/s AV Mean Gradient 8.2 mmHg AV Velocity Time Integral 46.6 cm AI Peak Velocity 343.3 cm/s AI Peak Gradient 47.1 mmHg AI Pressure Half Time 433.1 ms LVOT Peak Velocity 117.6 cm/s LVOT Peak Gradient 5.5 mmHg LVOT Velocity Time Integral 24.4 cm LVOT Stroke Volume 115.9 cm??? LVOT Stroke Volume Index 54.6 ml/m??? LVOT Cardiac Index 3712.1 cm???/min???m??? AV Area Cont Eq vti 2.5 cm??? AV Area Cont Eq pk 2.7 cm??? MV Area PHT 2.4 cm??? Mitral E Point Velocity 66.6 cm/s Mitral A Point Velocity 141.0 cm/s Mitral E to A Ratio 0.5 MV Deceleration Time 316.6 ms TR Peak Velocity 252.5 cm/s TR Peak Gradient 25.5 mmHg Right Ventricular Systolic Press 30.0 mmHg FINDINGS Left Ventricle Left ventricular ejection fraction is estimated at 50-55 %. Left ventricular cavity size normal. Severe concentric left ventricular hypertrophy. No obvious regional wall motion abnormalities. Right Ventricle Normal right ventricular size and function. Right ventricular systolic pressure within normal limits. Right Atrium Normal right atrial size. No right atrial thrombus or mass seen. Left Atrium Moderately increased left atrial diameter. Mildly increased left atrial volume. Mildly increased left atrial area. Mitral Valve Mitral valve thickened. Mitral annular calcification. No evidence for mitral valve prolapse. No mitral stenosis. No mitral regurgitation. Aortic Valve Trileaflet aortic valve. Aortic valve sclerosis. Mild aortic stenosis with a peak gradient of 17 mmHg and a mean gradient of 8 mmHg. Mild aortic regurgitation. Tricuspid Valve Structurally normal tricuspid valve. Mild tricuspid regurgitation. Pulmonic Valve Pulmonic valve not well visualized. No pulmonic regurgitation. Pericardium Small pericardial effusion. Aorta Moderate aortic dilatation at the level of the sinuses of valsalva 42 mm CONCLUSIONS Left ventricular ejection fraction 50-55% Severe increased left ventricular wall thickness Mild to moderately dilated left atrium No mitral regurgitation Mild aortic stenosis Mild tricuspid regurgitation Small pericardial effusion without tamponade physiology Previewed by: Dr. Sage Persaud DO (Electronically Signed) Final Date: 24 October 2023 15:20
[2023-10-24] MEDS: AZITHROMYCIN 500 MG TAB PO SCH (17:32)
[2023-10-24] MEDS: HYDROcodone/APAP 5-325MG 1 EACH TAB PO PRN (22:31)
[2023-10-24] MEDS: lisinopriL 20 MG TAB PO SCH (22:32)
[2023-10-24] MEDS: ATORVASTATIN 40 MG TAB PO SCH (22:32)
[2023-10-24] MEDS: TAMSULOSIN 0.4 MG CAP.ER.24H PO SCH (22:32)
[2023-10-24] MEDS: BRIMONIDINE TARTRATE 0.2% DROPS 5 ML BTL BOTH EYES SCH (22:33)
[2023-10-24] MEDS: TIMOLOL 0.25% OPHTH DROPS 5 ML BTL BOTH EYES SCH (22:33)
[2023-10-24] MEDS: LATANOPROST 0.005% OPHTH DROPS 2.5 ML BTL BOTH EYES SCH (22:33)
[2023-10-25] MEDS: ACETAMINOPHEN TAB 325 MG TAB PO PRN (00:35)
[2023-10-25 07:23] LABS: African American GFR (CKD) >90 (>60 ml/min/1.73 sqM); Anion Gap 4 mmol/L; Blood Urea Nitrogen 26 mg/dL (9-20); Calcium 8.9 mg/dL (8.4-10.2); Carbon Dioxide 30 mmol/L (22-30); Chloride 102 mmol/L (98-107); Glucose 82 mg/dL (74-99); Non-African American GFR(CKD) 88 (>60 ml/min/1.73 sqM); Potassium 4.1 mmol/L (3.5-5.1); Sodium 136 mmol/L (137-145)
[2023-10-25 08:46] VITALS: TEMP 97.3
--- NOTE | 2023-10-25 10:59 | P.PN ---
Subjective HISTORY OF PRESENT ILLNESS: This is a 83-year-old male with a past medical history significant for hypertension and congestive heart failure. Patient does not follow with a hospice clinical supervisor. We have been asked to see the patient in consultation for congestive heart failure. Patient examined at the bedside in the emergency room. There is no family present. The patient states he presented to the hospital with a chief complaint of a headache that has been ongoing for the past 2 to 3 weeks. The patient also reports he has been feeling short of breath which started about 3 to 4 weeks ago. He currently denies any chest pain or pressure. Vital signs are stable. DIAGNOSTICS: - EKG reveals sinus mechanism with no signs of acute ischemia. - Chest xray pulmonary vascular congestion, correlate for mild CHF. Trace bilateral pleural effusions. - Laboratory data: WBC 8.1. Hemoglobin 11.7. Platelet count 257. Sodium 139. Potassium 4.3. BUN 32. Creatinine 0.92. Troponin 0.120. proBNP 8390. - Current home cardiac medications include lisinopril 20 mg daily and Demadex 10 mg daily. 10/25/2023 Patient examined this morning at bedside. Patient continues to report a headache. He denies chest pain or pressure. He states his shortness of breath has returned back to his baseline. He remains on IV diuretics. Echocardiogram completed revealing ejection fraction 50 to 55% with mild aortic stenosis PHYSICAL EXAM: VITAL SIGNS: Reviewed. GENERAL: Well-developed in no acute distress. HEENT: Head is normocephalic. Pupils are equal, round. Sclerae anicteric. Mucous membranes of the mouth are moist. Neck supple. No JVD or thyromegaly LUNGS: Respirations even and unlabored. Lungs essentially clear to auscultation bilaterally. HEART: Regular rate and rhythm. S1 and S2 heard. ABDOMEN: Soft. Nondistended. Nontender. EXTREMITIES: Normal range of motion. No clubbing or cyanosis. Peripheral pulses intact. 1+ bilateral lower extremity edema NEUROLOGIC: Awake and alert. Oriented x 3. ASSESSMENT: Headache x 3 weeks, etiology unclear Acute on chronic heart failure with preserved EF 50 to 55% Mild aortic stenosis Elevated troponins, suspect type II PR due to oxygen supply and demand mismatch secondary to acute CHF, non-STEMI less likely Hypertension Obesity: BMI 33.3 PLAN: Neurology following for persistent headache Discontinue IV Lasix. Begin Demadex 20 mg starting tomorrow Continue additional cardiac medications Patient currently stable from a cardiac perspective Further recommendations pending patient course Nurse practitioner note has been reviewed by physician. Signing provider agrees with the documented findings, assessment, and plan of care documented by NET MAKER as a scribe. Objective - Vital Signs Vital signs: Vital Signs Temp 97.3 F L 10/25/23 08:46 Pulse 74 10/25/23 08:46 Resp 16 10/25/23 08:46 BP 107/53 10/25/23 08:46 Pulse Ox 94 L 10/25/23 08:46 FiO2 Intake & Output 10/24/23 10/25/23 10/25/23 18:59 06:59 18:59 Output Total 1999 1100 400 Balance -19991100 400 Weight 99.1 kg Output: Urine 1999 1099 400 Other: Voiding Method External Catheter Toilet Urinal - Labs CBC & Chem 7: 10/23/23 20:44 10/25/23 06:49 Labs: Abnormal Lab Results - Last 24 Hours (Table) 10/24/23 10/24/23 10/25/23 Range/Units 10:23 14:24 06:49 Sodium 136 L (137-145) mmol/L BUN 26 H (9-20) mg/dL Troponin I 0.107 H* 0.082 H* (0.000-0.034) ng/mL
[2023-10-25 11:17] VITALS: BP 170/74; PULSE 63; RESP 17
--- NOTE | 2023-10-25 11:43 | P.DS ---
Providers Date of admission: 10/24/23 01:29 Discharge Diagnosis: Headache Blurry vision Heart failure with preserved ejection fraction Glaucoma Macular degeneration Sinusitis Hospital Course: Patient is a 83-year-old male with a history of hypertension, glaucoma, macular degeneration came to the ER with the complaint of left-sided temporal headache since 3 weeks. Patient had an extensive ER evaluation for left temporal headache including CRP, ESR, CT brain, and CTA head. Investigation is unremarkable and there is decreased likelihood of temporal arteritis, intracranial hemorrhage and/or other intracranial abnormality. Patient has been feeling short of breath and fatigue since 3 weeks. Patient reports chest pain, tachycardia, dyspnea upon exertion, orthopnea, and bilateral leg edema. Patient reports mild, intermittent, substernal chest pain worse with physical exertion and resolves with rest. Patient recalls no previous episodes of shortness of breath and chest pain. Patient denies recent hospitalization, recent travel. patient denies cough, diaphoresis, abdominal pain, diarrhea or constipation, urinary issues or weakness and numbness in upper and lower extremities. He is unsure of past history of coronary artery disease and states that his son is better aware of his past medical and surgical history. His son was not present at the time of the interview. ED vitals Temp 97.4, pulse 77, respiratory rate 20, blood pressure 201/77, SaO2 95 on room air. EKG done in the ER shows heart rate of 73 bpm, right bundle branch block, poor R wave progression, nonspecific STT wave changes, no QTc prolongation. Chest x-ray done in the ER shows a pulmonary vascular congestion correlating for mild congestive heart failure with trace bilateral pleural effusion. Brain CT showed no acute intracranial process. Head CTA showed normal morongo of [place]. Car diology was consulted, he was placed on IV Lasix for fluid overload. Neurology was consulted to rule out possible temporal arthritis. Patient was admitted for further evaluation. During his stay echocardiogram showed left ventricular ejection fraction 55-55%, severely increased left ventricular wall thickness, mild to moderately dilated left atrium, mild aortic stenosis mild small pericardial effusion without tamponade. While admitted patient was given antibiotic for possible sinus infection which may be the cause of his headache due to noted facial tenderness on physical exam. He was placed on strict intake and output to assess volume status. During his stay volume status improved. Neurology ruled out temporal arteritis, and suggested to follow-up with ophthalmology. Prescribed guideline directed medical therapy for his diastolic dysfunction. Patient will follow-up with PCP, cardiology and ophthalmology outpatient. Patient is to be discharged home 10/25/2023: Patient seen and examined at bedside. No acute events overnight. Patient states he has been voiding frequently. Volume status improving. Shortness of breath improving. Still says he has headache. Vital signs reviewed and stable. Physical Exam: Vital signs reviewed General: non toxic, no distress, appears at stated age, normal weight Derm: no unusual rashes/lesions, warm Head: atraumatic, normocephalic, symmetric Eyes: EOMI, no lid lag, anicteric sclera, pupils equal round reactive to light ENT: Nose and ears atraumatic Neck: No cervical lymphadenopathy, trachea midline, supple Mouth: no lip lesion, mucus membranes moist Cardiovascular: S1S2 reg, no murmur, positive dorsalis pedis pulse bilateral, grade 1 bilateral pitting edema in lower extremities. Lungs: Diminished breath sounds on lower lung bases. no rhonchi, no rales, no accessory muscle use Abdominal: soft, nontender to palpation, no guarding Ext: muscle strength 4 out of 5 in all 4 extremities grossly, no gross muscle atrophy, no contractures, Neuro: CN II-XI grossly intact, no gross focal neuro deficits Psych: Alert, oriented, appropriate affect A total of 20 minutes of time were spent preparing this complex discharge summary. Patient was discharge on 10/25/2023 at 11:45 AM Expected date of discharge: 10/25/23 Attending physician: Russ Briones MD Consults: 10/24/23 01:27 Consult Physician Urgent Consulting Provider: [facility] Consult Reason/Comments: chf Do you want consulting provider notified?: Yes, Notify in am 10/24/23 07:07 Consult Physician Routine Consulting Provider: Ashley Jarvis Consult Reason/Comments: headache Do you want consulting provider notified?: Yes 10/24/23 14:12 Consult Physician Routine Consulting Provider: Quin Bowman Consult Reason/Comments: History of glaucoma and macular degeneration with worsening vision Do you want consulting provider notified?: Yes Primary care physician: [facility] Course: I have seen and evaluated the patient today. Discussed with the resident and agree with the residents subjective and objective as documented in the resident's note. The assessment and plan was discussed and outlined as below. Headache persistent he does have some tenderness of the maxillary sinus and temporal region. Discussed with Dr. Rodriguez, temporal arteritis is highly unlike ly. Prescribed 1 more day of Azithromycin to complete a total of 3 days. Advised son that Mucinex and Flonase may help as well. He does have an appointment coming up with Dr. Lake next week per his son. Echo shows EF 50-55% with severe concentric LVH. 3.1L urine output over the past 24H on Lasix 40 mg IV BID. Discussed with Stephy ALMONTE, transition to Torsemide 20 mg PO QD, cleared for discharge from Cardiology standpoint. Family is advised fluid restriction and low salt diet. Advised to monitor his BP at home for further titration of BP meds with PCP. Follow up with Dr. Lake as scheduled. Follow up with PCP within 1-2 days of discharge. Plan is for discharge home today. Discharge Diagnosis: Headache likely due to sinusitis Diastolic CHF exacerbation Hypertensive urgency on admission Blurry vision with history of glaucoma and macular degeneration. Troponin elevation, trending down, likely type II [place] This complex discharge took 35 minutes to complete. Patient Condition at Discharge: Stable Plan - Discharge Summary Discharge Rx Participant: No New Discharge Prescriptions: New Torsemide [Demadex] 20 mg PO DAILY #30 tab Metoprolol Tartrate [Lopressor] 12.5 mg PO BID #60 tab Acetaminophen Tab [Tylenol] 650 mg PO Q6HR PRN tab PRN Reason: Mild Pain Or Fever > 100.5 Azithromycin [Zithromax] 500 mg PO DAILY #1 tab Aspirin 81 mg PO DAILY #30 tab Atorvastatin [Lipitor] 40 mg PO HS #30 tab Continue Brimonidine Tartrate [Alphagan P 0.2% Ophth Soln] 1 drop BOTH EYES BID lisinopriL [Zestril] 20 mg PO DAILY Tamsulosin [Flomax] 0.4 mg PO HS Timolol 0.25% Ophth Soln [Timoptic 0.25% Ophth Soln] 1 drop BOTH EYES BID Latanoprost [Latanoprost 0.005%] 1 drop BOTH EYES HS Discontinued Torsemide [Demadex] 10 mg PO DAILY Discharge Medication List Brimonidine Tartrate [Alphagan P 0.2% Ophth Soln] 1 drop BOTH EYES BID 10/24/23 [History] Latanoprost [Latanoprost 0.005%] 1 drop BOTH EYES HS 10/24/23 [History] Tamsulosin [Flomax] 0.4 mg PO HS 10/24/23 [History] Timolol 0.25% Ophth Soln [Timoptic 0.25% Ophth Soln] 1 drop BOTH EYES BID 10/24/23 [History] lisinopriL [Zestril] 20 mg PO DAILY 10/24/23 [History] Acetaminophen Tab [Tylenol] 650 mg PO Q6HR PRN tab 10/25/23 [Rx] Aspirin 81 mg PO DAILY #30 tab 10/25/23 [Rx] Atorvastatin [Lipitor] 40 mg PO HS #30 tab 10/25/23 [Rx] Azithromycin [Zithromax] 500 mg PO DAILY #1 tab 10/25/23 [Rx] Metoprolol Tartrate [Lopressor] 12.5 mg PO BID #60 tab 10/25/23 [Rx] Torsemide [Demadex] 20 mg PO DAILY #30 tab 10/25/23 [Rx] Follow up Appointment(s)/Referral(s): Aakash Lake MD [STAFF PHYSICIAN] - 1 Week (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 Needs complete exam and OCT for eye care. currently using latanoprost nightly, timolol twice daily and brimonidine twice daily. Please call to make an apt. ) Trenton Davenport MD [STAFF PHYSICIAN] - 1 Week (Please call on Friday to schedule an apt. ) Vaughn Montenegro DO [Primary Care Provider] - 1-2 days (Please call to schedule hospital follow up apt. ) Patient Instructions/Handouts: Heart Failure (DC) Activity/Diet/Wound Care/Special Instructions: fluid restriction 2 liters. salt restriction Discharge Disposition: HOME SELF-CARE
--- NOTE | 2023-10-25 12:01 | P.PN ---
Subjective Progress Note Date: 10/25/23 The patient is an 83-year-old male who was seen in neurologic consultation on October 25, 2023, in collaboration with Araseli Wong, via teleneurology. The patient's chart has been reviewed. According to the patient, he has been experiencing a headache, off and on for the past 6 weeks. He initially denies vision loss however then reports that he has been having cloudiness of his vision. He does have a history of macular degeneration and glaucoma. Patient does report photophobia. He has been having left-sided head pain and believes it is because he is laying on his left side. He does report tenderness to palpation of the left temporal artery region. He is wearing glasses and reports some sensitivity when he has his glasses on. Objective - Vital Signs Vital signs: Vital Signs Temp 97.3 F L 10/25/23 08:46 Pulse 63 10/25/23 11:13 Resp 17 10/25/23 11:13 BP 170/74 10/25/23 11:13 Pulse Ox 95 10/25/23 11:13 FiO2 Intake & Output 10/24/23 10/25/23 10/25/23 18:59 06:59 18:59 Output Total 1999 1100 700 Balance -1999 -1100 -700 Weight 99.1 kg Output: Urine 1999 1100 700 Other: Voiding Method External Catheter Toilet Urinal - Exam General: The patient is reclining in the bed. He is in no acute distress. HEENT: Head is atraumatic, normocephalic. Fundus not visualized. There is no scleral icterus. Mucous membranes are moist. There is mild tenderness to palpation of the left temporal artery region. There is no evidence of clicking of the jaw or TMJ. Neurological examination Mental status: The patient is awake, alert and oriented x 3. His speech is clear. There is no dysarthria or aphasia. Cranial nerves: Pupils are equal at 3 mm and reactive. Visual ulrich are full to confrontation. Extraocular movements are intact. There is no facial asymmetry. Hearing is diminished. Uvula and palate are midline. Shoulder shrug is symmetric. Tongue protrudes midline. Motor: Strength is 5/5 throughout. - Labs CBC & Chem 7: 10/23/23 20:44 10/25/23 06:49 Labs: Abnormal Lab Results - Last 24 Hours (Table) 10/24/23 10/25/23 Range/Units 14:24 06:49 Sodium 136 L (137-145) mmol/L BUN 26 H (9-20) mg/dL Troponin I 0.082 H* (0.000-0.034) ng/mL Assessment and Plan Assessment: New onset left temporal headache, that extends to the left frontal region, off and on, for the last 6 weeks. Reasons probably multifactorial as mentioned below. * Patient is also noticing some visual disturbance consisting of seeing speckled red/blue lines or brick patterns in the vision, more frequently in the last 6 weeks. Patient does have history of glaucoma, and has not seen ophthalmolo gist for the last 2 years. Rule out worsening of glaucoma or other ocular problems. * Uncontrolled hypertension, came with blood pressure 201/77. Uncontrolled hypertension may be associated with headaches. * CT scan also showing new onset left sphenoid sinusitis, which is new finding as compared to the last CT from 2011. Patient does not have significant sinus related symptoms however. * Elevated troponins * Macular degeneration Plan: Recommend ophthalmology consultation to rule out worsening of glaucoma, or other ocular causes of headache. * ESR 22, CRP 1.0-not elevated, when compared to the patient's age. To be considered elevated, the sed rate must be at least half of the patient's age * Patient has air-fluid level in the left sphenoid sinus noted on the CT scan. May consider course of antibiotic. * Optimize control of blood pressure to normotensive level. * For elevated troponin, cardiology on board. * Neurology will sign off at this time. Please call with questions or concerns Time with Patient: Greater than 30 (35 minutes were spent caring for this patient today including, obtaining history, examining the patient, reviewing i maging, chart documentation, labs, creating this note and discussing patient's care with the hospitalist)
[2023-10-26] MEDS ORDERED: TORSEMIDE 20 MG TAB PO SCH (09:00)
== END 2023-10-25 12:35 | disposition home or self-care (01) | DRG 152 ==
LOC: EC 19:28 → 3SCARD 10-24 01:29 → 6NMEDSUR 10-24 01:51 → 3SCARD 10-24 05:49 → OBSVTOIN 10-25 10:24
PROVIDERS: ADMIT Internal Medicine; ATTEND Internal Medicine
DX: J01.30 Acute sphenoidal sinusitis, unspecified (principal); I21.A1 Myocardial infarction type 2; I50.33 Acute on chronic diastolic (congestive) heart failure; I31.39 Other pericardial effusion (noninflammatory); I11.0 Hypertensive heart disease with heart failure; E66.9 Obesity, unspecified; H35.30 Unspecified macular degeneration; I35.0 Nonrheumatic aortic (valve) stenosis; H40.9 Unspecified glaucoma; I16.0 Hypertensive urgency; I45.10 Unspecified right bundle-branch block; Z68.33 Body mass index [BMI] 33.0-33.9, adult; Z79.899 Other long term (current) drug therapy
CPT/HCPCS: 36415; 70450; 70496; 71046; 80048; 80053; 83735; 83880; 84484; 85025; 85652; 86140; 93005; 93306; 96361; 96372; 96374; 96375; 96376; 99285

== ENCOUNTER 2024-01-12 13:04 | Inpatient (IN) | payer MEDICARE, BC ==
[2024-01-12] MEDS: IPRATROPIUM-ALBUTEROL 3 ML NEB INHALATION STA (13:22)
--- NOTE | 2024-01-12 13:35 | ED ---
SOB HPI - General Chief Complaint: Shortness of Breath Stated Complaint: NEHEMIAS Time Seen by Provider: 01/12/24 13:13 Source: patient, family, RN notes reviewed, old records reviewed Mode of arrival: wheelchair Limitations: no limitations - History of Present Illness Initial Comments: This is an 83-year-old male to the ER for evaluation of shortness of breath and a fall. Unsure if patient became severely shortness of breath prior to the fall and had a syncopal event but became very weak while going back to his car after having to use the restroom, patient is persistently short of breath here in the emergency department without chest pain. Does feel lightheaded and dizzy but denies injury from the fall after the sink near syncopal near syncopal event of weakness MD Complaint: shortness of breath, cough -: minutes(s) Radiation: back Severity: moderate Severity scale (1-10): 4 Consistency: constant Improves With: nothing Worsens With: nothing Known History Of: congestive heart failure Context: anxiety, recent illness Associated Symptoms: denies other symptoms - Related Data Home Medications Medication Instructions Recorded Confirmed Brimonidine Tartrate [Alphagan P 1 drop BOTH EYES BID 10/24/23 01/12/24 0.2% Ophth Soln] Latanoprost [Latanoprost 0.005%] 1 drop BOTH EYES HS 10/24/23 01/12/24 Tamsulosin [Flomax] 0.4 mg PO HS 10/24/23 01/12/24 lisinopriL [Zestril] 20 mg PO DAILY 10/24/23 01/12/24 Atorvastatin [Lipitor] 10 mg PO HS 01/12/24 01/12/24 Metoprolol Tartrate [Lopressor] 12.5 mg PO BID 01/12/24 01/12/24 Timolol 0.5% Ophth Soln [Timoptic 1 drop BOTH EYES BID 01/12/24 01/12/24 0.5% Ophth Soln] Vit C/E/Zn/Coppr/Lutein/Zeaxan 1 cap PO DAILY 01/12/24 01/12/24 [Preservision Areds 2 Softgel] Previous Rx's Medication Instructions Recorded Aspirin 81 mg PO DAILY #30 tab 10/25/23 Torsemide [Demadex] 20 mg PO DAILY #30 tab 10/25/23 Dapagliflozin Propanediol [Farxiga] 10 mg PO DAILY 30 Days #30 tab 01/16/24 amLODIPine [Norvasc] 10 mg PO DAILY 30 Days #30 tab 01/16/24 Allergies Allergy/AdvReac Type Severity Reaction Status Date / Time No Known Allergies Allergy Verified 01/12/24 14:20 Review of Systems ROS Statement: Those systems with pertinent positive or pertinent negative responses have been documented in the HPI. ROS Other: All systems not noted in ROS Statement are negative. Past Medical History Past Medical History: Heart Failure, Hypertension, Myocardial Infarction ([place]) Additional Past Medical History / Comment(s): macular degeneration , chronic uti History of Any Multi-Drug Resistant Organisms: None Reported Past Surgical History: Orthopedic Surgery Past Anesthesia/Blood Transfusion Reactions: No Reported Reaction Smoking Status: Former smoker Past Alcohol Use History: None Reported Past Drug Use History: None Reported - Past Family History Mother History Unknown: Yes Father History Unknown: Yes General Exam Limitations: no limitations General appearance: alert, in no apparent distress Head exam: Present: atraumatic, normocephalic, normal inspection Eye exam: Present: normal appearance, PERRL, EOMI. Absent: scleral icterus, conjunctival injection, periorbital swelling ENT exam: Present: normal exam, mucous membranes moist Neck exam: Present: normal inspection. Absent: tenderness, meningismus, lymphadenopathy Respiratory exam: Present: normal lung sounds bilaterally. Absent: respiratory distress, wheezes, rales, rhonchi, stridor Cardiovascular Exam: Present: regular rate, normal rhythm, normal heart sounds. Absent: systolic murmur, diastolic murmur, rubs, gallop, clicks GI/Abdominal exam: Present: soft, normal bowel sounds. Absent: distended, tenderness, guarding, rebound, rigid Extremities exam: Present: normal inspection, full ROM, normal capillary refill. Absent: tenderness, pedal edema, joint swelling, calf tenderness Back exam: Present: normal inspection Neurological exam: Present: alert, oriented X3, CN II-XII intact Psychiatric exam: Present: normal affect, normal mood Skin exam: Present: warm, dry, intact, normal color. Absent: rash Course Vital Signs 01/12/24 01/12/24 01/12/24 13:06 13:22 13:29 Temperature 97.6 F Pulse Rate 62 62 61 Respiratory 18 Rate Blood Pressure 188/82 O2 Sat by Pulse 95 Oximetry 01/12/24 01/12/24 01/12/24 14:08 16:48 21:42 Temperature Pulse Rate 70 64 Respiratory 18 19 Rate Blood Pressure 206/96 189/92 180/98 O2 Sat by Pulse 97 93 L Oximetry 01/12/24 01/13/24 01/13/24 22:16 00:39 01:58 Temperature Pulse Rate 66 59 L 57 L Respiratory 18 19 19 Rate Blood Pressure 186/89 164/68 157/70 O2 Sat by Pulse 93 L 94 L 94 L Oximetry 01/13/24 01/13/24 01/13/24 06:33 08:00 08:55 Temperature 97.4 F L 98 F Pulse Rate 61 63 63 Respiratory 20 24 16 Rate Blood Pressure 152/69 160/75 160/67 O2 Sat by Pulse 93 L 93 L 92 L Oximetry 01/13/24 01/13/24 01/13/24 10:00 11:00 12:00 Temperature Pulse Rate 65 60 62 Respiratory 20 16 20 Rate Blood Pressure 159/80 145/67 155/65 O2 Sat by Pulse 96 96 97 Oximetry 01/13/24 01/13/24 13:00 15:05 Temperature Pulse Rate 65 68 Respiratory 16 16 Rate Blood Pressure 145/84 135/60 O2 Sat by Pulse 98 97 Oximetry - Reevaluation(s) Reevaluation #1: 01/12/24 15:25 Records reviewed Reevaluation #2: 01/12/24 15:25 Patient symptoms improved Reevaluation #3: 01/12/24 15:25 Patient informed of results and questions answered Reevaluation #4: Was pt. sent in by a medical professional or institution (, PA, SAIL LAY OUT WORKER, urgent care, hospital, or long term...) When possible be specific @ -no Did you speak to anyone other than the patient for history (EMS, parent, family, police, friend...)? What history was obtained from this source @ -no Did you review nursing and triage notes (agree or disagree)? Why? @ -agree Are old charts reviewed (outside hosp., previous admission, EMS record, old EKG, old radiological studies, urgent care reports/EKG's, long term records)? Report findings @ -yes Differential Diagnosis (chest pain, altered mental status, abdominal pain women, abdominal pain men, vaginal bleeding, weakness, fever, dyspnea, syncope, headache, dizziness, GI bleed, back pain, seizure, CVA, palpatations, mental health, musculoskeletal)? @ -prior EKG interpreted by me (3pts min.). @ -yes X-rays interpreted by me (1pt min.). @ -yes negative for acute disease CT interpreted by me (1pt min.). @ -no U/S interpreted by me (1pt. min.). @ -no What testing was considered but not performed or refused? (CT, X-rays, U/S, labs)? Why? @ -none What meds were considered but not given or refused? Why? @ -none Did you discuss the management of the patient with other professionals (professionals i.e. , PA, SAIL LAY OUT WORKER, lab, RT, psych nurse, sr. social media & mobile manager, inspector weights and measures, teacher, environmental compliance officer, caseworker protective services)? Give summary @ -no Was smoking cessation discussed for >3mins.? @ -no Was critical care preformed (if so, how long)? @ -no Were there social determinants of health that impacted care today? How? (Homeles sness, low income, unemployed, alcoholism, drug addiction, transportation, low edu. Level, literacy, decrease access to med. care, nursing home, rehab)? @ -none Was there de-escalation of care discussed even if they declined (Discuss DNR or withdrawal of care, Hospice)? DNR status @ -no What co-morbidities impacted this encounter? (DM, HTN, Smoking, COPD, CAD, Cancer, CVA, ARF, Chemo, Hep., AIDS, mental health diagnosis, sleep apnea, morbid obesity)? @ -none Was patient admitted / discharged? Hospital course, mention meds given and route, prescriptions, significant lab abnormalities, going to OR and other pertinent info. @ - 83 male will be admitted for CHF exacerbation near syncopal syncopal event with fall no traumatic injury noted Admitted Undiagnosed new problem with uncertain prognosis? @ -no Drug Therapy requiring intensive monitoring for toxicity (Heparin, Nitro, Insulin, Cardizem)? @ -no Were any procedures done? @ -no Diagnosis/symptom? @ -CHF and a syncopal event with fall Acute, or Chronic, or Acute on Chronic? @ -Acute Uncomplicated (without systemic symptoms) or Complicated (systemic symptoms)? @ -Complicated Side effects of treatment? @ -no Exacerbation, Progression, or Severe Exacerbation? @ -exacerbation Poses a threat to life or bodily function? How? (Chest pain, [place], [place], pneumonia, PE, COPD, DKA, ARF, appy, cholecystitis, CVA, Diverticulitis, Homicidal, Cooper icidal, threat to staff... and all critical care pts) @ -yes extremes of age Reevaluation #5: differential Syncope: Valvular disease, hypertrophic cardiomyopathy, pulmonary embolism, tamponade, tachycardia, bradycardia, [place], hypovolemia, hemorrhage, dissection, anemia, i ntracranial hemorrhage, seizure, hypoglycemia, carbon monoxide poisoning, this is not meant to be an all-inclusive list. Differential Dyspnea: Coronary syndrome, arrhythmia, tamponade, asthma, COPD, pulmonary embolism, pneumonia, pneumothorax, pulmonary effusion, anaphylaxis, diabetic ketoacidosis, flailed chest, pulmonary contusion, diaphragmatic rupture, anemia, neuromuscular, this is not meant to be an all-inclusive list. - Consultations Consultation #1: With sound who agrees to admit this patient Medical Decision Making - Medical Decision Making 83 male will be admitted for CHF exacerbation near syncopal syncopal event with fall no traumatic injury noted - Lab Data Result diagrams: 01/15/24 11:24 01/15/24 11:24 Lab Results 01/12/24 01/12/24 01/12/24 Range/Units 14:00 14:00 14:00 WBC 9.6 (3.8-10.6) k/uL RBC 3.78 L (4.30-5.90) m/uL Hgb 11.7 L (13.0-17.5) gm/dL Hct 35.8 L (39.0-53.0) % MCV 94.7 (80.0-100.0) fL MCH 30.9 (25.0-35.0) pg MCHC 32.7 (31.0-37.0) g/dL RDW 14.6 (11.5-15.5) % Plt Count 220 (150-450) k/uL MPV 7.5 Neutrophils % 72 % Lymphocytes % 15 % Monocytes % 6 % Eosinophils % 5 % Basophils % 0 % Neutrophils # 7.0 (1.3-7.7) k/uL Lymphocytes # 1.4 (1.0-4.8) k/uL Monocytes # 0.6 (0-1.0) k/uL Eosinophils # 0.5 (0-0.7) k/uL Basophils # 0.0 (0-0.2) k/uL PT 10.5 (10.0-12.5) sec INR 0.9 (<1.2) APTT 24.3 (22.0-30.0) sec Sodium 140 (137-145) mmol/L Potassium 4.1 (3.5-5.1) mmol/L Chloride 112 H (98-107) mmol/L Carbon Dioxide 22 (22-30) mmol/L Anion Gap 6 mmol/L BUN 29 H (9-20) mg/dL Creatinine 0.71 (0.66-1.25) mg/dL Est GFR (CKD-EPI)AfAm >90 (>60 ml/min/1.73 sqM) Est GFR (CKD-EPI)NonAf 87 (>60 ml/min/1.73 sqM) Glucose 84 (74-99) mg/dL Calcium 8.8 (8.4-10.2) mg/dL Magnesium (1.6-2.3) mg/dL Total Bilirubin 0.7 (0.2-1.3) mg/dL AST 21 (17-59) U/L ALT 10 (4-49) U/L Alkaline Phosphatase 43 (38-126) U/L Troponin I (0.000-0.034) ng/mL NT-Pro-B Natriuret Pep 7640 pg/mL Total Protein 5.8 L (6.3-8.2) g/dL Total Protein (PEP) (6.2-8.2) g/dL Albumin 3.4 L (3.5-5.0) g/dL Free [place] LC, Quant (0.33-1.94) mg/dL Free Lambda LC, Quant (0.57-2.63) mg/dL 01/12/24 01/12/24 01/12/24 Range/Units 14:00 17:13 20:02 WBC (3.8-10.6) k/uL RBC (4.30-5.90) m/uL Hgb (13.0-17.5) gm/dL Hct (39.0-53.0) % MCV (80.0-100.0) fL MCH (25.0-35.0) pg MCHC (31.0-37.0) g/dL RDW (11.5-15.5) % Plt Count (150-450) k/uL MPV Neutrophils % % Lymphocytes % % Monocytes % % Eosinophils % % Basophils % % Neutrophils # (1.3-7.7) k/uL Lymphocytes # (1.0-4.8) k/uL Monocytes # (0-1.0) k/uL Eosinophils # (0-0.7) k/uL Basophils # (0-0.2) k/uL PT (10.0-12.5) sec INR (<1.2) APTT (22.0-30.0) sec Sodium (137-145) mmol/L Potassium (3.5-5.1) mmol/L Chloride (98-107) mmol/L Carbon Dioxide (22-30) mmol/L Anion Gap mmol/L BUN (9-20) mg/dL Creatinine (0.66-1.25) mg/dL Est GFR (CKD-EPI)AfAm (>60 ml/min/1.73 sqM) Est GFR (CKD-EPI)NonAf (>60 ml/min/1.73 sqM) Glucose (74-99) mg/dL Calcium (8.4-10.2) mg/dL Magnesium (1.6-2.3) mg/dL Total Bilirubin (0.2-1.3) mg/dL AST (17-59) U/L ALT (4-49) U/L Alkaline Phosphatase (38-126) U/L Troponin I 0.046 H* 0.054 H* 0.067 H* (0.000-0.034) ng/mL NT-Pro-B Natriuret Pep pg/mL Total Protein (6.3-8.2) g/dL Total Protein (PEP) (6.2-8.2) g/dL Albumin (3.5-5.0) g/dL Free [place] LC, Quant (0.33-1.94) mg/dL Free Lambda LC, Quant (0.57-2.63) mg/dL 10/01/24 10/01/24 10/01/24 Range/Units 09:12 09:12 09:12 WBC 9.8 (3.8-10.6) k/uL RBC 4.23 L (4.30-5.90) m/uL Hgb 12.9 L (13.0-17.5) gm/dL Hct 40.2 (39.0-53.0) % MCV 95.0 (80.0-100.0) fL MCH 30.4 (25.0-35.0) pg MCHC 32.0 (31.0-37.0) g/dL RDW 14.5 (11.5-15.5) % Plt Count 245 (150-450) k/uL MPV 7.8 Neutrophils % % Lymphocytes % % Monocytes % % Eosinophils % % Basophils % % Neutrophils # (1.3-7.7) k/uL Lymphocytes # (1.0-4.8) k/uL Monocytes # (0-1.0) k/uL Eosinophils # (0-0.7) k/uL Basophils # (0-0.2) k/uL PT (10.0-12.5) sec INR (<1.2) APTT (22.0-30.0) sec Sodium 139 (137-145) mmol/L Potassium 4.9 (3.5-5.1) mmol/L Chloride 106 (98-107) mmol/L Carbon Dioxide 27 (22-30) mmol/L Anion Gap 6 mmol/L BUN 22 H (9-20) mg/dL Creatinine 0.58 L (0.66-1.25) mg/dL Est GFR (CKD-EPI)AfAm >90 (>60 ml/min/1.73 sqM) Est GFR (CKD-EPI)NonAf >90 (>60 ml/min/1.73 sqM) Glucose 79 (74-99) mg/dL Calcium 8.9 (8.4-10.2) mg/dL Magnesium 1.9 (1.6-2.3) mg/dL Total Bilirubin (0.2-1.3) mg/dL AST (17-59) U/L ALT (4-49) U/L Alkaline Phosphatase (38-126) U/L Troponin I (0.000-0.034) ng/mL NT-Pro-B Natriuret Pep pg/mL Total Protein (6.3-8.2) g/dL Total Protein (PEP) 6.7 (6.2-8.2) g/dL Albumin (3.5-5.0) g/dL Free [place] LC, Quant 2.50 H (0.33-1.94) mg/dL Free Lambda LC, Quant 2.31 (0.57-2.63) mg/dL 01/14/24 01/14/24 Range/Units 06:06 06:06 WBC 9.3 (3.8-10.6) k/uL RBC 4.28 L (4.30-5.90) m/uL Hgb 13.1 (13.0-17.5) gm/dL Hct 40.7 (39.0-53.0) % MCV 95.2 (80.0-100.0) fL MCH 30.5 (25.0-35.0) pg MCHC 32.0 (31.0-37.0) g/dL RDW 14.4 (11.5-15.5) % Plt Count 222 (150-450) k/uL MPV 7.2 Neutrophils % % Lymphocytes % % Monocytes % % Eosinophils % % Basophils % % Neutrophils # (1.3-7.7) k/uL Lymphocytes # (1.0-4.8) k/uL Monocytes # (0-1.0) k/uL Eosinophils # (0-0.7) k/uL Basophils # (0-0.2) k/uL PT (10.0-12.5) sec INR (<1.2) APTT (22.0-30.0) sec Sodium 140 (137-145) mmol/L Potassium 4.5 (3.5-5.1) mmol/L Chloride 102 (98-107) mmol/L Carbon Dioxide 33 H (22-30) mmol/L Anion Gap 5 mmol/L BUN 24 H (9-20) mg/dL Creatinine 0.88 (0.66-1.25) mg/dL Est GFR (CKD-EPI)AfAm >90 (>60 ml/min/1.73 sqM) Est GFR (CKD-EPI)NonAf 79 (>60 ml/min/1.73 sqM) Glucose 92 (74-99) mg/dL Calcium 9.1 (8.4-10.2) mg/dL Magnesium 2.0 (1.6-2.3) mg/dL Total Bilirubin (0.2-1.3) mg/dL AST (17-59) U/L ALT (4-49) U/L Alkaline Phosphatase (38-126) U/L Troponin I (0.000-0.034) ng/mL NT-Pro-B Natriuret Pep pg/mL Total Protein (6.3-8.2) g/dL Total Protein (PEP) (6.2-8.2) g/dL Albumin (3.5-5.0) g/dL Free [place] LC, Quant (0.33-1.94) mg/dL Free Lambda LC, Quant (0.57-2.63) mg/dL - EKG Data -: EKG Interpreted by Me (EKG is sinus 62 NV 197 QRS 141 QTc 430) - Radiology Data Radiology results: report reviewed (CXR Positive for CHF), image reviewed Disposition Clinical Impression: CHF (congestive heart failure), Systolic congestive heart failure, Syncope Disposition: HOME SELF-CARE Condition: Stable Is patient prescribed a controlled substance at d/c from ED?: No Time of Disposition: 15:30
[2024-01-12 14:15] LABS: Basophils % (A) 0 %; Eosinophils # (A) 0.5 k/uL (0-0.7); Eosinophils % (A) 5 %; HCT 35.8 % (39.0-53.0); HGB 11.7 gm/dL (13.0-17.5); Lymphocytes # (A) 1.4 k/uL (1.0-4.8); Lymphocytes % (A) 15 %; MCH 30.9 pg (25.0-35.0); MCHC 32.7 g/dL (31.0-37.0); MCV 94.7 fL (80.0-100.0); Mean Platelet Volume 7.5; Monocytes # (A) 0.6 k/uL (0-1.0); Monocytes % (A) 6 %; Neutrophils % (A) 72 %; Platelet Count 220 k/uL (150-450); RBC 3.78 m/uL (4.30-5.90); RDW 14.6 % (11.5-15.5); WBC 9.6 k/uL (3.8-10.6)
[2024-01-12 14:38] LABS: ALT 10 U/L (4-49); AST 21 U/L (17-59); African American GFR (CKD) >90 (>60 ml/min/1.73 sqM); Albumin 3.4 g/dL (3.5-5.0); Alkaline Phosphatase 43 U/L (38-126); Anion Gap 6 mmol/L; Blood Urea Nitrogen 29 mg/dL (9-20); Calcium 8.8 mg/dL (8.4-10.2); Carbon Dioxide 22 mmol/L (22-30); Chloride 112 mmol/L (98-107); Glucose 84 mg/dL (74-99); INR 0.9 (<1.2); Non-African American GFR(CKD) 87 (>60 ml/min/1.73 sqM); Partial Thromboplastin Time 24.3 sec (22.0-30.0); Potassium 4.1 mmol/L (3.5-5.1); Prothrombin Time 10.5 sec (10.0-12.5); Sodium 140 mmol/L (137-145); Total Bilirubin 0.7 mg/dL (0.2-1.3); Total Protein 5.8 g/dL (6.3-8.2)
[2024-01-12 14:46] LABS: NT-Pro-B-Type Natriuretic Pept 7640 pg/mL
--- NOTE | 2024-01-12 14:51 | XR ---
EXAMINATION TYPE: XR chest 1V portable DATE OF EXAM: 01/12/2024 COMPARISON: 10/24/2023 HISTORY: Shortness of breath TECHNIQUE: Single frontal view of the chest is obtained. FINDINGS: There is pulmonary vascular congestion and mild interstitial edema with probable mild cardiomegaly. T he findings are similar to that seen on the study of 10/24/2023 and is most consistent with recurrent CHF. There is no pneumothorax or large pleural effusion. The osseous structures are intact IMPRESSION: Findings most consistent with mild CHF similar to the pattern seen on the study of 2023 [facility] Arlene Milan, , 01/12/2024 2:49 PM
[2024-01-12] MEDS: FUROSEMIDE 10 MG/ML 4 ML VIAL IV SCH ×2 (16:45→21:05)
--- NOTE | 2024-01-12 18:03 | P.HPIM ---
History of Present Illness H&P Date: 01/12/24 83 year old M with PMH of macular degeneration, glaucoma, hypertension, diastolic CHF presents to the ED for SOB. Patient reports a mechanical fall 2 days ago while trying to make it to the bathroom at [employer]. He reports hurting his right foot but has since been able to bear weight on it. Patient reports progressively worsening shortness of breath over the past 3 weeks. Worse with exertion. Reports 2 pillow orthopnea and lower extremity swelling. Denies any chest pain, palpitations or lightheadedness. This prompted him to come to the ED. In the ED he underwent extensive evaluation. BP as high as 206/96, HR 61, T 97.6F, RR 18 95% on RA. CBC, Coag panel, CMP significant for RBC 3.78, Hg 11.7, Hct 35.8, Cl 112, BUN 29, alb 3.4. Troponin 0.046. CXR showed mild pulmonary vascular congestion. EKG sinus rhythm with RBBB. Patient is admitted for CHF exacerbation with Cardiology consultation. General: non toxic, no distress, appears at stated age Derm: warm, dry Head: atraumatic, normocephalic, symmetric Eyes: EOMI, no lid lag, anicteric sclera Mouth: no lip lesion, mucus membranes moist Cardiovascular: S1S2 regular, no murmur Lungs: Decreased BS bilateral, no rhonchi, no rales , no accessory muscle use Ext: no gross muscle atrophy, 1+ edema, no contractures Abd: Soft. Non distended. Neuro: No focal neurologic deficits Psych: Alert and oriented Based on my assessment of this patient, this patient meets a high complexity level of care. Acute on chronic diastolic CHF exacerbation: Lasix 40 mg IV BID. Strict intake and outtake. Daily weights. Monitor daily renal function and electrolytes. Recent Echo 10/2023 EF 50-55%. Low salt and 1.5L fluid restriction diet. Cardiology consult. Hypertensive urgency: Restart Lisinopril 20 mg PO QD, Metoprolol 12.5 mg PO QD. Add Amlodipine 10 mg PO QD. Troponin elevation: Likely demand ischemia. Trend Troponin/EKG to rule out ACS. ASA 81 mg PO QD. Lipitor 10 mg PO QHS. Metoprolol as above. Prerenal azotemia: Monitor while on lasix. Glaucoma: Restart Brimonidine, Latanoprost, Trimolol eye drops. BPH: Flomax 0.4 mg PO QHS. CODE STATUS: FULL CODE. DVT Prophylaxis: Lovenox GI Prophylaxis: Designated medical POA if patient is not able to make medical decisions for themselves: Son I have reviewed the following platform consultant notes: ER note. I have reviewed the results of the following tests: As above. I have ordered the following tests: As above. I have discussed the care of this patient with the following independent historian: I have independently interpreted the following test below: EKG. I have discussed the management of this patient with the following physician: Past Medical History Past Medical History: Heart Failure, Hypertension, Myocardial Infarction ([place]) Additional Past Medical History / Comment(s): macular degeneration , chronic uti History of Any Multi-Drug Resistant Organisms: None Reported Past Surgical History: Orthopedic Surgery Past Anesthesia/Blood Transfusion Reactions: No Reported Reaction Smoking Status: Former smoker Past Alcohol Use History: None Reported Past Drug Use History: None Reported Medications and Allergies Home Medications Medication Instructions Recorded Confirmed Type Brimonidine Tartrate [Alphagan P 1 drop BOTH EYES BID 10/24/23 01/12/24 History 0.2% Ophth Soln] Latanoprost [Latanoprost 0.005%] 1 drop BOTH EYES HS 10/24/23 01/12/24 History Tamsulosin [Flomax] 0.4 mg PO HS 10/24/23 01/12/24 History lisinopriL [Zestril] 20 mg PO DAILY 10/24/23 01/12/24 History Aspirin 81 mg PO DAILY #30 tab 10/25/23 01/12/24 Rx Torsemide [Demadex] 20 mg PO DAILY #30 tab 10/25/23 01/12/24 Rx Atorvastatin [Lipitor] 10 mg PO HS 01/12/24 01/12/24 History Metoprolol Tartrate [Lopressor] 12.5 mg PO BID 01/12/24 01/12/24 History Timolol 0.5% Ophth Soln [Timoptic 1 drop BOTH EYES BID 01/12/24 01/12/24 History 0.5% Ophth Soln] Vit C/E/Zn/Coppr/Lutein/Zeaxan 1 cap PO DAILY 01/12/24 01/12/24 History [Preservision Areds 2 Softgel] Allergies Allergy/AdvReac Type Severity Reaction Status Date / Time No Known Allergies Allergy Verified 01/12/24 14:20 Physical Exam Vitals: Vital Signs Temp Pulse Resp BP Pulse Ox 01/12/24 16:48 70 18 189/92 97 01/12/24 14:08 206/96 01/12/24 13:29 61 01/12/24 13:22 62 01/12/24 13:06 97.6 F 62 18 188/82 95 Intake and Output 01/12/24 01/12/24 01/12/24 06:59 14:59 22:59 Other: Weight 105.687 kg Results CBC & Chem 7: 01/12/24 14:00 01/12/24 14:00 Labs: Abnormal Lab Results - Last 24 Hours (Table) 01/12/24 01/12/24 01/12/24 Range/Units 14:00 14:00 14:00 RBC 3.78 L (4.30-5.90) m/uL Hgb 11.7 L (13.0-17.5) gm/dL Hct 35.8 L (39.0-53.0) % Chloride 112 H (98-107) mmol/L BUN 29 H (9-20) mg/dL Troponin I 0.046 H* (0.000-0.034) ng/mL Total Protein 5.8 L (6.3-8.2) g/dL Albumin 3.4 L (3.5-5.0) g/dL
[2024-01-12] MEDS: amLODIPine 10 MG TAB PO SCH (19:41)
[2024-01-12] MEDS: BRIMONIDINE TARTRATE 0.2% DROPS 5 ML BTL BOTH EYES SCH (21:01)
[2024-01-12] MEDS: TAMSULOSIN 0.4 MG CAP.ER.24H PO SCH (21:03)
[2024-01-12] MEDS: METOPROLOL TARTRATE 12.5 MG TAB PO SCH (21:03)
[2024-01-12] MEDS: ATORVASTATIN 10 MG TAB PO SCH (21:03)
[2024-01-12] MEDS: LATANOPROST 0.005% OPHTH DROPS 2.5 ML BTL BOTH EYES SCH (21:05)
[2024-01-12] MEDS: TIMOLOL 0.5% OPHTH DROPS 5 ML BTL BOTH EYES SCH (21:06)
[2024-01-13] MEDS: ACETAMINOPHEN TAB 325 MG TAB PO PRN (03:17)
[2024-01-13] MEDS: ENOXAPARIN 40 MG/0.4 ML SYRINGE SQ SCH (08:17)
[2024-01-13] MEDS: ASPIRIN 81 MG PO SCH (08:18)
[2024-01-13] MEDS: lisinopriL 20 MG TAB PO SCH (08:18)
[2024-01-13] MEDS: DAPAGLIFLOZIN PROPANEDIOL 10 MG TABLET PO SCH (10:41)
[2024-01-13 10:42] LABS: HCT 40.2 % (39.0-53.0); HGB 12.9 gm/dL (13.0-17.5); MCH 30.4 pg (25.0-35.0); Mean Platelet Volume 7.8; Platelet Count 245 k/uL (150-450); RBC 4.23 m/uL (4.30-5.90); RDW 14.5 % (11.5-15.5); WBC 9.8 k/uL (3.8-10.6)
[2024-01-13] MEDS: lisinopriL 20 MG TAB PO STA (10:42)
[2024-01-13 10:53] LABS: African American GFR (CKD) >90 (>60 ml/min/1.73 sqM); Anion Gap 6 mmol/L; Blood Urea Nitrogen 22 mg/dL (9-20); Calcium 8.9 mg/dL (8.4-10.2); Carbon Dioxide 27 mmol/L (22-30); Chloride 106 mmol/L (98-107); Glucose 79 mg/dL (74-99); Non-African American GFR(CKD) >90 (>60 ml/min/1.73 sqM); Sodium 139 mmol/L (137-145)
[2024-01-13 11:37] LABS: Magnesium 1.9 mg/dL (1.6-2.3); Potassium 4.9 mmol/L (3.5-5.1)
--- NOTE | 2024-01-13 12:24 | P.CRDCN ---
History of Present Illness History of present illness: HISTORY OF PRESENT ILLNESS: This is a 83-year-old male with a past medical history significant for hypertension, hyperlipidemia, and congestive heart failure. Patient follows in the office with Dr. Baron. We have been asked to see the patient in consultation for congestive heart failure. Patient examined at the bedside in the ER. Patient states he has been feeling SOB for the past few weeks. He reports increased weight gain as well. He was found to elevated BP. Patient does report his blood pressures have been running higher at home. Patient was found to be in congestive heart failure and was started on IV Lasix. DIAGNOSTICS: - EKG reveals sinus mechanism with right bundle branch block. No signs of acute ischemia - Chest xray findings most consistent with mild CHF. Pulmonary vascular congestion and mild interstitial edema with probable mild cardiomegaly. - Laboratory data: WBC 9.6. Hemoglobin 11.7. Platelet count 220. Sodium 140. Potassium 4.1. BUN 29. Creatinine 0.71. Troponin 0.046. 0.054. 0.067. proBNP 7640. - Current home cardiac medications include aspirin 81 mg daily, Lipitor 10 mg at night, metoprolol tartrate 12.5 mg twice a day, Demadex 20 mg daily, lisinopril 20 mg daily - Most recent echocardiogram obtained in October 2023 revealed ejection fraction 55 to 60%, severe concentric LVH, mild aortic stenosis with peak gradient of 17 and mean gradient of 8 mmHg, mild aortic regurgitation, mild tricuspid regurgitation -Patient underwent Lexiscan stress test in October 2023 at the office which was negative for ischemia REVIEW OF SYSTEMS: At the time of my exam: CONSTITUTIONAL: Denies fever or chills. HEENT: Denies blurred vision, vision changes, or eye pain. Denies hemoptysis CARDIOVASCULAR: Denies chest pain. Denies orthopnea. Denies PND. Denies palpitations RESPIRATORY: Denies shortness of breath. GASTROINTESTINAL: Denies abdominal pain. Denies nausea or vomiting. HEMATOLOGIC: Denies bleeding disorders. GENITOURINARY: Denies any blood in urine. SKIN: Denies pruitis. Denies rash. PHYSICAL EXAM: VITAL SIGNS: Reviewed. GENERAL: Well-developed in no acute distress. HEENT: Head is normocephalic. Pupils are equal, round. Sclerae anicteric. Mucous membranes of the mouth are moist. Neck supple. No JVD or thyromegaly LUNGS: Respirations even and unlabored. Lungs diminished with bibasilar crackles HEART: Regular rate and rhythm. S1 and S2 heard. Systolic murmur noted. ABDOMEN: Soft. Nondistended. Nontender. EXTREMITIES: Normal range of motion. No clubbing or cyanosis. Peripheral pulses intact. 1+ bilateral lower extremity edema NEUROLOGIC: Awake and alert. Oriented x 3. 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 Rule out amyloidosis Further recommendations pending patient course Nurse practitioner note has been reviewed by physician. Signing provider agrees with the documented findings, assessment, and plan of care documented by E[employer] GRINDER as a scribe. Past Medical History Past Medical History: Heart Failure, Hypertension, Myocardial Infarction (DE) Additional Past Medical History / Comment(s): macular degeneration , chronic uti History of Any Multi-Drug Resistant Organisms: None Reported Past Surgical History: Orthopedic Surgery Past Anesthesia/Blood Transfusion Reactions: No Reported Reaction Smoking Status: Former smoker Past Alcohol Use History: None Reported Past Drug Use History: None Reported Medications and Allergies Home Medications Medication Instructions Recorded Confirmed Type Brimonidine Tartrate [Alphagan P 1 drop BOTH EYES BID 10/24/23 01/12/24 History 0.2% Ophth Soln] Latanoprost [Latanoprost 0.005%] 1 drop BOTH EYES HS 10/24/23 01/12/24 History Tamsulosin [Flomax] 0.4 mg PO HS 10/24/23 01/12/24 History lisinopriL [Zestril] 20 mg PO DAILY 10/24/23 01/12/24 History Aspirin 81 mg PO DAILY #30 tab 10/25/23 01/12/24 Rx Torsemide [Demadex] 20 mg PO DAILY #30 tab 10/25/23 01/12/24 Rx Atorvastatin [Lipitor] 10 mg PO HS 01/12/24 01/12/24 History Metoprolol Tartrate [Lopressor] 12.5 mg PO BID 01/12/24 01/12/24 History Timolol 0.5% Ophth Soln [Timoptic 1 drop BOTH EYES BID 01/12/24 01/12/24 History 0.5% Ophth Soln] Vit C/E/Zn/Coppr/Lutein/Zeaxan 1 cap PO DAILY 01/12/24 01/12/24 History [Preservision Areds 2 Softgel] Allergies Allergy/AdvReac Type Severity Reaction Status Date / Time No Known Allergies Allergy Verified 01/12/24 14:20 Physical Exam Vitals: Vital Signs Temp Pulse Resp BP Pulse Ox 01/13/24 08:00 98 F 63 24 160/75 93 L 01/13/24 06:33 97.4 F L 61 20 152/69 93 L 01/13/24 01:58 57 L 19 157/70 94 L 01/13/24 00:39 59 L 19 164/68 94 L 01/12/24 22:16 66 18 186/89 93 L 01/12/24 21:42 64 19 180/98 93 L 01/12/24 16:48 70 18 189/92 97 01/12/24 14:08 206/96 01/12/24 13:29 61 01/12/24 13:22 62 01/12/24 13:06 97.6 F 62 18 188/82 95 Intake and Output 01/12/24 01/13/24 01/13/24 22:59 06:59 14:59 Intake Total 1250 Output Total 1500 1150 Balance -1500 100 Intake: Oral 1250 Output: Urine 1500 1150 Male - External 1500 Results 01/13/24 09:12 01/13/24 09:12 Cardiac Enzymes 01/12/24 01/12/24 01/12/24 Range/Units 14:00 14:00 17:13 AST 21 (17-59) U/L Troponin I 0.046 H* 0.054 H* (0.000-0.034) ng/mL 01/12/24 Range/Units 20:02 AST (17-59) U/L Troponin I 0.067 H* (0.000-0.034) ng/mL Coagulation 01/12/24 Range/Units 14:00 PT 10.5 (10.0-12.5) sec APTT 24.3 (22.0-30.0) sec CBC 01/12/24 Range/Units 14:00 WBC 9.6 (3.8-10.6) k/uL RBC 3.78 L (4.30-5.90) m/uL Hgb 11.7 L (13.0-17.5) gm/dL Hct 35.8 L (39.0-53.0) % Plt Count 220 (150-450) k/uL Comprehensive Metabolic Panel 01/12/24 Range/Units 14:00 Sodium 140 (137-145) mmol/L Potassium 4.1 (3.5-5.1) mmol/L Chloride 112 H (98-107) mmol/L Carbon Dioxide 22 (22-30) mmol/L BUN 29 H (9-20) mg/dL Creatinine 0.71 (0.66-1.25) mg/dL Glucose 84 (74-99) mg/dL Calcium 8.8 (8.4-10.2) mg/dL AST 21 (17-59) U/L ALT 10 (4-49) U/L Alkaline Phosphatase 43 (38-126) U/L Total Protein 5.8 L (6.3-8.2) g/dL Albumin 3.4 L (3.5-5.0) g/dL Current Medications Generic Name Dose Route Start Last Admin Trade Name Freq PRN Reason Stop Dose Admin Acetaminophen 650 mg 01/13/24 03:04 01/13/24 03:17 Acetaminophen Tab 325 Mg Tab PO 650 mg Q4HR PRN Administration Fever and/ or Pain Amlodipine Besylate 10 mg 01/12/24 18:00 01/13/24 08:18 Amlodipine 10 Mg Tab PO 10 mg DAILY INDY Administration Aspirin 81 mg 01/13/24 09:00 01/13/24 08:18 Aspirin 81 Mg PO 81 mg DAILY INDY Administration Atorvastatin Calcium 10 mg 01/12/24 21:00 01/12/24 21:03 Atorvastatin 10 Mg Tab PO 10 mg HS INDY Administration Brimonidine Tartrate 1 drops 01/12/24 21:00 01/12/24 21:01 Brimonidine Tartrate 0.2% Drops 5 Ml Btl BOTH EYES 1 drops BID INDY Administration Enoxaparin Sodium 40 mg 01/13/24 09:00 01/13/24 08:17 Enoxaparin 40 Mg/0.4 Ml Syringe SQ 40 mg DAILY INDY Administration Furosemide 40 mg 01/12/24 21:00 01/13/24 08:18 Furosemide 10 Mg/Ml 4 Ml Vial IV 40 mg Q12HR INDY Administration Latanoprost 1 drops 01/12/24 21:00 01/12/24 21:05 Latanoprost 0.005% Ophth Drops 2.5 Ml Btl BOTH EYES 1 drops HS INDY Administration Lisinopril 20 mg 01/13/24 09:00 01/13/24 08:18 Lisinopril 20 Mg Tab PO 20 mg DAILY INDY Administration Metoprolol Tartrate 12.5 mg 01/12/24 21:00 01/13/24 08:18 Metoprolol Tartrate 12.5 Mg Tab PO 12.5 mg BID INDY Administration Tamsulosin HCl 0.4 mg 01/12/24 21:00 01/12/24 21:03 Tamsulosin 0.4 Mg Cap.Er.24h PO 0.4 mg HS INDY Administration Timolol Maleate 1 drops 01/12/24 21:00 01/12/24 21:06 Timolol 0.5% Ophth Drops 5 Ml Btl BOTH EYES 1 drops BID INDY Administration Intake and Output 01/12/24 01/13/24 01/13/24 22:59 06:59 14:59 Intake Total 1250 Output Total 1500 1150 Balance -1500 100 Intake: Oral 1250 Output: Urine 1500 1150 Male - External 1500 01/12/24 14:00 01/12/24 14:00
--- NOTE | 2024-01-13 16:03 | P.PN ---
Subjective Progress Note Date: 01/13/24 Hospital course: Patient is a very pleasant 83-year-old male with a past medical history of CAD, hypertension, hyperlipidemia, chronic diastolic heart failure, and macular degeneration. He presented to the emergency department on 01/12/2024 secondary to reports of shortness of breath. Upon arrival to our facility, patient underwent evaluation in the emergency department. Vital signs upon arrival show blood pressure 188/82, heart rate 62, respiratory rate 18, temp 97.6 F, and SpO2 of 95% on room air. Shortly after arrival blood pressure increased to 206/ 96 with heart rate of 70. EKG completed showing normal sinus rhythm at 62 bpm with a right bundle branch block. Chest x-ray completed consistent with mild CHF exacerbation. Labs completed and reviewed. CBC showing stable normocytic anemia with hemoglobin of 11.7 otherwise normal findings. Coagulation profile normal findings. BMP showing hyperchloremia with chloride of 112 and mild prerenal azotemia with BUN of 29 otherwise normal findings. Blood glucose 84. Liver profile unremarkable. Troponin was 0.046 with proBNP of 7640. Patient admitted under our services for acute on chronic diastolic heart failure exacerbation and elevated troponin with consultation to cardiology. Troponins trended overnight resulting at 0.046, 0.054, and 0.067. Physical exam: Patient was seen and fully evaluated at bedside this morning. He was resting comfortably in bed and currently denies having any pain or complaints at this time. He reports his breathing is better today when compared to yesterday but states still not back at baseline. Vital signs reviewed and stable. General: Nontoxic, no distress and appears stated age. Derm: Skin warm and dry, normal coloration for ethnicity. Head: Atraumatic, normocephalic and symmetric. Eyes: EOM's intact, no lid lag, and anicteric sclera Mouth: no lip lesions, mucus membranes moist Cardiovascular: regular rate and rhythm with normal S1S2, soft systolic murmur, positive posterior tibial pulses bilaterally, and cap refill < 2 seconds. Lungs: Respirations even, regular, and unlabored on room air. Lungs diminished. No rhonchi, rales, crackles, or wheezes noted. Abdominal: soft, nontender to palpation, no guarding, no appreciable organomegaly Ext: ROM intact. No gross muscle atrophy, 1+ BLE edema, no contractures Neuro: Speech clear, face symmetrical and CN II-XII grossly intact with no noted focal neuro deficits Psych: Alert and oriented to person, place, time, and situation. Appropriate and pleasant affect. Assessment and Plan of Care: Acute on chronic diastolic heart failure exacerbation Hypertensive urgency Elevated troponins, type II DE secondary to diastolic heart failure exacerbation -Cardiology consulted, reviewed documentation in chart. Lawyers placing order for serum protein electrophoresis, kappa/lambda light chains to rule out amyloidosis. Increasing lisinopril to 40 mg daily and adding on Farxiga 10 mg daily for optimal blood pressure control. -Telemetry monitoring -Daily weights with Close monitoring of I's and O's -Cardiac diet -Lasix 40 mg IVP every 12 hours -Continuation of aspirin 81 mg daily, atorvastatin 10 mg nightly, amlodipine 10 mg daily, Farxiga 10 mg daily, lisinopril 40 mg daily, and metoprolol 12.5 mg twice daily. -Continued close monitoring of electrolytes while diuresing. Status post mechanical fall Fall precautions in place Consult PT/OT for evaluation. Macular degeneration Continue brimonidine ophthalmologic drops in both eyes twice daily, latanoprost ophthalmolic drops 1 drop each eye nightly, and timolol ophthalmology drops to both eyes twice daily. Data and imaging reviewed: Vital signs reviewed. Blood pressure 160/67, heart rate 63, respiratory rate 16, temp 98.0 F and SpO2 of 92% on room air. Morning labs reviewed. CBC showing stable normocytic anemia with hemoglobin of 12.9. BMP showing improvement of prerenal azotemia with BUN of 22, creatinine of 0.58, GFR greater than 90. Blood glucose 79. Magnesium 1.9. Troponins trended overnight resulting at 0.046, 0.054, and 0.067. CODE STATUS: Full code DVT prophylaxis: Lovenox Anticipated discharge date: Pending clinical course Anticipated discharge place: Pending clinical course Patient was seen independently by Nurse Pracitioner. This document was prepared using [employer] dictation software. Please allow for errors in accounts supervisor, while rare they do occur. Jama Erazo NP rendered care for this patient independently, reviewed the findings and plan as documented in the note above. I did not physically speak with or examine the patient on this date. Objective - Vital Signs Vital signs: Vital Signs Temp 98 F 01/13/24 08:00 Pulse 63 01/13/24 08:00 Resp 24 10/01/24 08:00 BP 160/75 01/13/24 08:00 Pulse Ox 93 L 01/13/24 08:00 FiO2 Intake & Output 01/12/24 01/13/24 01/13/24 18:59 06:59 18:59 Intake Total 1250 Output Total 1500 1150 Balance -1500 100 Weight 105.687 kg Intake: Oral 1250 Output: Urine 1500 1150 Male - External 1500 - Labs CBC & Chem 7: 01/13/24 09:12 01/13/24 09:12 Labs: Abnormal Lab Results - Last 24 Hours (Table) 01/12/24 01/12/24 01/12/24 Range/Units 14:00 14:00 14:00 RBC 3.78 L (4.30-5.90) m/uL Hgb 11.7 L (13.0-17.5) gm/dL Hct 35.8 L (39.0-53.0) % Chloride 112 H (98-107) mmol/L BUN 29 H (9-20) mg/dL Troponin I 0.046 H* (0.000-0.034) ng/mL Total Protein 5.8 L (6.3-8.2) g/dL Albumin 3.4 L (3.5-5.0) g/dL 01/12/24 01/12/24 Range/Units 17:13 20:02 RBC (4.30-5.90) m/uL Hgb (13.0-17.5) gm/dL Hct (39.0-53.0) % Chloride (98-107) mmol/L BUN (9-20) mg/dL Troponin I 0.054 H* 0.067 H* (0.000-0.034) ng/mL Total Protein (6.3-8.2) g/dL Albumin (3.5-5.0) g/dL
[2024-01-14 06:23] LABS: HCT 40.7 % (39.0-53.0); HGB 13.1 gm/dL (13.0-17.5); MCH 30.5 pg (25.0-35.0); MCV 95.2 fL (80.0-100.0); Mean Platelet Volume 7.2; Platelet Count 222 k/uL (150-450); RBC 4.28 m/uL (4.30-5.90); RDW 14.4 % (11.5-15.5); WBC 9.3 k/uL (3.8-10.6)
[2024-01-14 07:38] LABS: African American GFR (CKD) >90 (>60 ml/min/1.73 sqM); Anion Gap 5 mmol/L; Blood Urea Nitrogen 24 mg/dL (9-20); Calcium 9.1 mg/dL (8.4-10.2); Carbon Dioxide 33 mmol/L (22-30); Chloride 102 mmol/L (98-107); Glucose 92 mg/dL (74-99); Non-African American GFR(CKD) 79 (>60 ml/min/1.73 sqM); Potassium 4.5 mmol/L (3.5-5.1); Sodium 140 mmol/L (137-145)
[2024-01-14] MEDS: lisinopriL 20 MG TAB PO SCH (08:50)
[2024-01-14 11:15] LABS: Protein, Total 6.7 g/dL (6.2-8.2)
--- NOTE | 2024-01-14 12:25 | P.PN ---
Subjective Progress Note Date: 01/14/24 Hospital course: Patient is a very pleasant 83-year-old male with a past medical history of CAD, hypertension, hyperlipidemia, chronic diastolic heart failure, and macular degeneration. He presented to the emergency department on 01/12/2024 secondary to reports of shortness of breath. Upon arrival to our facility, patient underwent evaluation in the emergency department. Vital signs upon arrival show blood pressure 188/82, heart rate 62, respiratory rate 18, temp 97.6 F, and SpO2 of 95% on room air. Shortly after arrival blood pressure increased to 206/ 96 with heart rate of 70. EKG completed showing normal sinus rhythm at 62 bpm with a right bundle branch block. Chest x-ray completed consistent with mild CHF exacerbation. Labs completed and reviewed. CBC showing stable normocytic anemia with hemoglobin of 11.7 otherwise normal findings. Coagulation profile normal findings. BMP showing hyperchloremia with chloride of 112 and mild prerenal azotemia with BUN of 29 otherwise normal findings. Blood glucose 84. Liver profile unremarkable. Troponin was 0.046 with proBNP of 7640. Patient admitted under our services for acute on chronic diastolic heart failure exacerbation and elevated troponin with consultation to cardiology. Troponins trended overnight resulting at 0.046, 0.054, and 0.067. Physical exam: Patient was seen and fully evaluated at bedside this morning. He was resting comfortably in bed visiting with family at bedside. Patient reports feeling better and better each day. Vital signs reviewed and stable. General: Nontoxic, no distress and appears stated age. Derm: Skin warm and dry, normal coloration for ethnicity. Head: Atraumatic, normocephalic and symmetric. Eyes: EOM's intact, no lid lag, and anicteric sclera Mouth: no lip lesions, mucus membranes moist Cardiovascular: regular rate and rhythm with normal S1S2, soft systolic murmur, positive posterior tibial pulses bilaterally, and cap refill < 2 seconds. Lungs: Respirations even, regular, and unlabored on room air. Lungs diminished. No rhonchi, rales, crackles, or wheezes noted. Abdominal: soft, nontender to palpation, no guarding, no appreciable organomegaly Ext: ROM intact. No gross muscle atrophy, 1+ BLE edema, no contractures Neuro: Speech clear, face symmetrical and CN II-XII grossly intact with no noted focal neuro deficits Psych: Alert and oriented to person, place, time, and situation. Appropriate and pleasant affect. Assessment and Plan of Care: Acute on chronic diastolic heart failure exacerbation Hypertensive urgency Elevated troponins, type II CA secondary to diastolic heart failure exacerbation CAD -Cardiology consulted, reviewed documentation in chart. Director Of Accounting ordered for serum protein electrophoresis which resulted at 6.7 and, free kappa/lambda light chains pending to rule out amyloidosis. -Telemetry monitoring -Daily weights with Close monitoring of I's and O's. Patient had a total of 3250 cc of urinary output over the past 24 hours and has lost 3.7 kg (8.14 lbs) over the past 24 hours.. -Cardiac diet -Lasix 40 mg IVP every 12 hours -Continuation of aspirin 81 mg daily, atorvastatin 10 mg nightly, amlodipine 10 mg daily, Farxiga 10 mg daily, lisinopril 40 mg daily, and metoprolol 12.5 mg twice daily. -Continued close monitoring of electrolytes while diuresing. Status post mechanical fall Fall precautions in place Consult PT/OT for evaluation. Macular degeneration Continue brimonidine ophthalmologic drops in both eyes twice daily, latanoprost ophthalmolic drops 1 drop each eye nightly, and timolol ophthalmology drops to both eyes twice daily. Data and imaging reviewed: Vital signs reviewed. Blood pressure 150/65, heart rate 68, respiratory rate 16, temp 97.4 F, and SpO2 of 96% on 2 L. Morning labs reviewed. CBC unremarkable. BMP showing mild hypercarbia with bicarb of 33 and elevated BUN of 24, creatinine 0.88, and GFR of 79. Magnesium 2.0. PEP or serum protein electrophoresis resulting at 6.7. Patient had a total of 3250 cc of urinary output over the past 24 hours and has lost 3.7 kg (8.14 lbs) over the past 24 hours. CODE STATUS: Full code DVT prophylaxis: Lovenox Anticipated discharge date: Pending clinical course Anticipated discharge place: Pending clinical course Patient was seen independently by Nurse Pracitioner. This document was prepared using [employer] dictation software. Please allow for errors in drawing tender, while rare they do occur. .Jama Erazo NP rendered care for this patient independently, reviewed the findings and plan as documented in the note above. I did not physically speak with or examine the patient on this date. Objective - Vital Signs Vital signs: Vital Signs Temp 98.2 F 01/14/24 03:30 Pulse 56 L 01/14/24 03:30 Resp 16 01/14/24 03:30 BP 155/72 01/14/24 03:30 Pulse Ox 95 01/14/24 03:30 FiO2 Intake & Output 01/13/24 01/14/24 01/14/24 18:59 06:59 18:59 Intake Total 118 Output Total 1400 1850 Balance -1282 -1850 Weight 105.687 kg 102 kg Intake: Oral 118 Output: Urine 1400 1850 Other: Voiding Method External Catheter External Catheter - Labs CBC & Chem 7: 01/15/24 11:24 01/15/24 11:24 Labs: Abnormal Lab Results - Last 24 Hours (Table) 01/13/24 01/13/24 01/14/24 Range/Units 09:12 09:12 06:06 RBC 4.23 L 4.28 L (4.30-5.90) m/uL Hgb 12.9 L (13.0-17.5) gm/dL Carbon Dioxide (22-30) mmol/L BUN 22 H (9-20) mg/dL Creatinine 0.58 L (0.66-1.25) mg/dL 01/14/24 Range/Units 06:06 RBC (4.30-5.90) m/uL Hgb (13.0-17.5) gm/dL Carbon Dioxide 33 H (22-30) mmol/L BUN 24 H (9-20) mg/dL Creatinine (0.66-1.25) mg/dL
[2024-01-14 13:27] VITALS: BMI 34.2
--- NOTE | 2024-01-14 14:31 | P.PN ---
Subjective HISTORY OF PRESENT ILLNESS: This is a 83-year-old male with a past medical history significant for hypertension, hyperlipidemia, and congestive heart failure. Patient follows in the office with Dr. Baron. We have been asked to see the patient in consultation for congestive heart failure. Patient examined at the bedside in the ER. Patient states he has been feeling SOB for the past few weeks. He reports increased weight gain as well. He was found to elevated BP. Patient does report his blood pressures have been running higher at home. Patient was found to be in congestive heart failure and was started on IV Lasix. DIAGNOSTICS: - EKG reveals sinus mechanism with right bundle branch block. No signs of acute ischemia - Chest xray findings most consistent with mild CHF. Pulmonary vascular congestion and mild interstitial edema with probable mild cardiomegaly. - Laboratory data: WBC 9.6. Hemoglobin 11.7. Platelet count 220. Sodium 140. Potassium 4.1. BUN 29. Creatinine 0.71. Troponin 0.046. 0.054. 0.067. proBNP 7640. - Current home cardiac medications include aspirin 81 mg daily, Lipitor 10 mg at night, metoprolol tartrate 12.5 mg twice a day, Demadex 20 mg daily, lisinopril 20 mg daily - Most recent echocardiogram obtained in October 2023 revealed ejection fraction 55 to 60%, severe concentric LVH, mild aortic stenosis with peak gradient of 17 and mean gradient of 8 mmHg, mild aortic regurgitation, mild tricuspid regurgitation -Patient underwent Lexiscan stress test in October 2023 at the office which was negative for ischemia 01/14/2024 Patient examined this morning at the bedside. Patient currently denies chest pain or pressure. He reports mild shortness of breath this morning but improved from yesterday. Serum protein electrophoresis 6.7. [place]/lambda light chains remain pending. Patient remains on IV diuretics 40 mg every 12 hours. BUN 24. Creatinine 0.88. Patient's blood pressure better controlled today after antihypertensive adjustments made yesterday. Most recent blood pressure 120/70. PHYSICAL EXAM: VITAL SIGNS: Reviewed. GENERAL: Well-developed in no acute distress. HEENT: Head is normocephalic. Pupils are equal, round. Sclerae anicteric. Mucous membranes of the mouth are moist. Neck supple. No JVD or thyromegaly LUNGS: Respirations even and unlabored. Lungs diminished HEART: Regular rate and rhythm. S1 and S2 heard. Systolic murmur noted. ABDOMEN: Soft. Nondistended. Nontender. EXTREMITIES: Normal range of motion. No clubbing or cyanosis. Peripheral pulses intact. Trace bilateral lower extremity edema NEUROLOGIC: Awake and alert. Oriented x 3. ASSESSMENT: Status post mechanical fall Shortness of breath Acute on chronic heart failure with preserved EF, 55 to 60% Hypertensive urgency Severe concentric LVH, rule out amyloidosis Elevated troponins, type II [place] secondary to oxygen supply/demand mismatch, no evidence of acute coronary syndrome Mild aortic stenosis and mild AI Hypertension Hyperlipidemia PLAN: No need to repeat echocardiogram as this was performed in October 2023 Continue current cardiac medications Continue IV Lasix 40 mg every 12 hours. Likely transition to oral diuretics tomorrow. Daily weights, accurate intake and output, and monitoring of kidney function Serum protein electrophoresis 6.7. [place]wait[place] kappa/lambda light chains. Rule out amyloidosis Further recommendations pending patient course Nurse practitioner note has been reviewed by physician. Signing provider agrees with the documented findings, assessment, and plan of care documented by SPECIAL LIBRARIAN as a scribe. Objective - Vital Signs Vital signs: Vital Signs Temp 97.4 F L 01/14/24 08:54 Pulse 59 L 01/14/24 11:31 Resp 16 01/14/24 11:31 BP 120/70 01/14/24 11:31 Pulse Ox 96 01/14/24 11:31 FiO2 Intake & Output 01/13/24 01/14/24 01/14/24 18:59 06:59 18:59 Intake Total 118 130 Output Total 1400 1850 1000 Balance -1282 -1850 -870 Weight 105.687 kg 102 kg Intake: IV 10 Invasive Line 1 10 Oral 118 120 Output: Urine 1400 1850 1000 Other: Voiding Method External Catheter External Catheter External Catheter - Labs CBC & Chem 7: 01/14/24 06:06 01/14/24 06:06 Labs: Abnormal Lab Results - Last 24 Hours (Table) 01/14/24 01/14/24 Range/Units 06:06 06:06 RBC 4.28 L (4.30-5.90) m/uL Carbon Dioxide 33 H (22-30) mmol/L BUN 24 H (9-20) mg/dL
[2024-01-14 14:36] LABS: Free Kappa Lt Chain Qnt, Serum 2.5 mg/dL (0.33-1.94); Free Lambda Lt Chain Qnt, Seru 2.31 mg/dL (0.57-2.63)
[2024-01-15] MEDS ORDERED: ALPRAZolam 0.25 MG TAB PO STA (10:41)
[2024-01-15 11:52] LABS: HCT 41.7 % (39.0-53.0); MCH 31.4 pg (25.0-35.0); MCHC 33.6 g/dL (31.0-37.0); MCV 93.4 fL (80.0-100.0); Mean Platelet Volume 8.3; Platelet Count 267 k/uL (150-450); RBC 4.46 m/uL (4.30-5.90); RDW 14.9 % (11.5-15.5); WBC 11.5 k/uL (3.8-10.6)
[2024-01-15 12:03] LABS: African American GFR (CKD) 87 (>60 ml/min/1.73 sqM); Anion Gap 4 mmol/L; Blood Urea Nitrogen 30 mg/dL (9-20); Calcium 9.4 mg/dL (8.4-10.2); Carbon Dioxide 32 mmol/L (22-30); Chloride 101 mmol/L (98-107); Glucose 94 mg/dL (74-99); Non-African American GFR(CKD) 75 (>60 ml/min/1.73 sqM); Sodium 137 mmol/L (137-145)
--- NOTE | 2024-01-15 13:05 | P.PN ---
Subjective HISTORY OF PRESENT ILLNESS: This is a 83-year-old male with a past medical history significant for hypertension, hyperlipidemia, and congestive heart failure. Patient follows in the office with Dr. Baron. We have been asked to see the patient in consultation for congestive heart failure. Patient examined at the bedside in the ER. Patient states he has been feeling SOB for the past few weeks. He reports increased weight gain as well. He was found to elevated BP. Patient does report his blood pressures have been running higher at home. Patient was found to be in congestive heart failure and was started on IV Lasix. DIAGNOSTICS: - EKG reveals sinus mechanism with right bundle branch block. No signs of acute ischemia - Chest xray findings most consistent with mild CHF. Pulmonary vascular congestion and mild interstitial edema with probable mild cardiomegaly. - Laboratory data: WBC 9.6. Hemoglobin 11.7. Platelet count 220. Sodium 140. Potassium 4.1. BUN 29. Creatinine 0.71. Troponin 0.046. 0.054. 0.067. proBNP 7640. - Current home cardiac medications include aspirin 81 mg daily, Lipitor 10 mg at night, metoprolol tartrate 12.5 mg twice a day, Demadex 20 mg daily, lisinopril 20 mg daily - Most recent echocardiogram obtained in October 2023 revealed ejection fraction 55 to 60%, severe concentric LVH, mild aortic stenosis with peak gradient of 17 and mean gradient of 8 mmHg, mild aortic regurgitation, mild tricuspid regurgitation -Patient underwent Lexiscan stress test in October 2023 at the office which was negative for ischemia 01/14/2024 Patient examined this morning at the bedside. Patient currently denies chest pain or pressure. He reports mild shortness of breath this morning but improved from yesterday. Serum protein electrophoresis 6.7. [place]/lambda light chains remain pending. Patient remains on IV diuretics 40 mg every 12 hours. BUN 24. Creatinine 0.88. Patient's blood pressure better controlled today after antihypertensive adjustments made yesterday. Most recent blood pressure 120/70. 01/15/2024 Patient examined this morning at the bedside. Patient denies chest pain or pressure. He denies shortness of breath. He remains on IV diuretics. Creatinine today 1.26. PHYSICAL EXAM: VITAL SIGNS: Reviewed. GENERAL: Well-developed in no acute distress. HEENT: Head is normocephalic. Pupils are equal, round. Sclerae anicteric. Mucous membranes of the mouth are moist. Neck supple. No JVD or thyromegaly LUNGS: Respirations even and unlabored. Lungs diminished HEART: Regular rate and rhythm. S1 and S2 heard. Systolic murmur noted. ABDOMEN: Soft. Nondistended. Nontender. EXTREMITIES: Normal range of motion. No clubbing or cyanosis. Peripheral pulses intact. Trace bilateral lower extremity edema NEUROLOGIC: Awake and alert. Oriented x 3. ASSESSMENT: Status post mechanical fall Shortness of breath Acute on chronic heart failure with preserved EF, 55 to 60% Hypertensive urgency Severe concentric LVH, rule out amyloidosis Elevated troponins, type II [place] secondary to oxygen supply/demand mismatch, no evidence of acute coronary syndrome Mild aortic stenosis and mild AI Hypertension Hyperlipidemia PLAN: No need to repeat echocardiogram as this was performed in October 2023 Continue current cardiac medications Discontinue IV Lasix. Resume oral Demadex 20 mg daily Patient is stable for discharge home today from a cardiac standpoint Further recommendations pending patient course Nurse practitioner note has been reviewed by physician. Signing provider agrees with the documented findings, assessment, and plan of care documented by FAMILY NURSE as a scribe. Objective - Vital Signs Vital signs: Vital Signs Temp 98.1 F 01/15/24 08:09 Pulse 69 01/15/24 08:09 Resp 18 01/15/24 08:09 BP 123/62 01/15/24 08:09 Pulse Ox 95 01/15/24 08:09 FiO2 Intake & Output 01/14/24 01/15/24 01/15/24 18:59 06:59 18:59 Intake Total 500 20 130 Output Total 1480 650 Balance -980 -630 130 Weight 102 kg 99.2 kg Intake: IV 20 20 10 Invasive Line 1 20 20 10 Oral 480 0 120 Output: Urine 1480 650 Other: Voiding Method External Catheter External Catheter - Labs CBC & Chem 7: 01/15/24 11:24 01/15/24 11:24 Labs: Abnormal Lab Results - Last 24 Hours (Table) 01/13/24 Range/Units 09:12 Free [place] LC, Quant 2.50 H (0.33-1.94) mg/dL
--- NOTE | 2024-01-15 13:51 | P.PN ---
Subjective Progress Note Date: 01/15/24 Hospital course: Patient is a very pleasant 83-year-old male with a past medical history of CAD, hypertension, hyperlipidemia, chronic diastolic heart failure, and macular degeneration. He presented to the emergency department on 01/12/2024 secondary to reports of shortness of breath. Upon arrival to our facility, patient underwent evaluation in the emergency department. Vital signs upon arrival show blood pressure 188/82, heart rate 62, respiratory rate 18, temp 97.6 F, and SpO2 of 95% on room air. Shortly after arrival blood pressure increased to 206/ 96 with heart rate of 70. EKG completed showing normal sinus rhythm at 62 bpm with a right bundle branch block. Chest x-ray completed consistent with mild CHF exacerbation. Labs completed and reviewed. CBC showing stable normocytic anemia with hemoglobin of 11.7 otherwise normal findings. Coagulation profile normal findings. BMP showing hyperchloremia with chloride of 112 and mild prerenal azotemia with BUN of 29 otherwise normal findings. Blood glucose 84. Liver profile unremarkable. Troponin was 0.046 with proBNP of 7640. Patient admitted under our services for acute on chronic diastolic heart failure exacerbation and elevated troponin with consultation to cardiology. Troponins trended overnight resulting at 0.046, 0.054, and 0.067. Physical exam: Patient was seen and fully evaluated at bedside this morning. Patient reports feeling anxious this morning. Patient very concerned as they are trying to wean him off of oxygen. Order placed for Xanax 0.25 mg p.o. x 1 dose to assist with calming patient. Will attempt to wean off patient and plan for home O2 eval. Vital signs reviewed and stable. General: Nontoxic, no distress and appears stated age. Derm: Skin warm and dry, normal coloration for ethnicity. Head: Atraumatic, normocephalic and symmetric. Eyes: EOM's intact, no lid lag, and anicteric sclera Mouth: no lip lesions, mucus membranes moist Cardiovascular: regular rate and rhythm with normal S1S2, soft systolic murmur, positive posterior tibial pulses bilaterally, and cap refill < 2 seconds. Lungs: Respirations even, regular, and unlabored on room air. Lungs diminished. No rhonchi, rales, crackles, or wheezes noted. Abdominal: soft, nontender to palpation, no guarding, no appreciable organomegaly Ext: ROM intact. No gross muscle atrophy, 1+ BLE edema, no contractures Neuro: Speech clear, face symmetrical and CN II-XII grossly intact with no noted focal neuro deficits Psych: Alert and oriented to person, place, time, and situation. Appropriate and pleasant affect. Assessment and Plan of Care: Acute on chronic diastolic heart failure exacerbation Hypertensive urgency Elevated troponins, type II [place] secondary to diastolic heart failure exacerbation CAD -Cardiology consulted, reviewed documentation in chart. Software Integration Developer ordered for serum protein electrophoresis which resulted at 6.7 and, Free kappa LC Quant elevated at 2.50 and free lambda LC Quant 2.31. -Telemetry monitoring -Daily weights with Close monitoring of I's and O's. Patient had a total of 3250 cc of urinary output over the past 24 hours and has lost 3.7 kg (8.14 lbs) over the past 24 hours.. -Cardiac diet -Lasix 40 mg IVP every 12 hours -Continuation of aspirin 81 mg daily, atorvastatin 10 mg nightly, amlodipine 10 mg daily, Farxiga 10 mg daily, lisinopril 40 mg daily, and metoprolol 12.5 mg twice daily. -Continued close monitoring of electrolytes while diuresing. Status post mechanical fall Fall precautions in place Consult PT/OT for evaluation. Macular degeneration Continue brimonidine ophthalmologic drops in both eyes twice daily, latanoprost ophthalmolic drops 1 drop each eye nightly, and timolol ophthalmology drops to both eyes twice daily. Data and imaging reviewed: Vital signs reviewed. Blood pressure 123/62, heart rate 69, respiratory rate 18, temp 90.1 F, and SpO2 of 93% on 2 L. Morning labs reviewed. CBC showing mild leukocytosis with WBC count of 11.5.. BMP showing hypercarbia with bicarb of 32 and elevated BUN of 30, creatinine 0.93, and GFR of 79. Magnesium 2.0. PEP or serum protein electrophoresis resulting at 6.7 Free kappa LC Quant elevated at 2.50 and free lambda LC Quant 2.31. Patient had a total of 2130 cc of urinary output over the past 24 hours and has lost 6.5 kg (14.27 lbs) since admission. CODE STATUS: Full code DVT prophylaxis: Lovenox Anticipated discharge date: Likely within the next [address]: Pending clinical course Patient was seen independently by Nurse Pracitioner. This document was prepared using Dragon dictation software. Please allow for errors in firestop/containment worker, while rare they do occur. .Jama Erazo, BUSINESS LAW INSTRUCTOR rendered care for this patient independently, reviewed the findings and plan as documented in the note above. I did not physically speak with or examine the patient on this date. Objective - Vital Signs Vital signs: Vital Signs Temp 98.1 F 01/15/24 08:09 Pulse 69 01/15/24 08:09 Resp 18 01/15/24 08:09 BP 123/62 01/15/24 08:09 Pulse Ox 95 01/15/24 08:09 FiO2 Intake & Output 01/14/24 01/15/24 01/15/24 18:59 06:59 18:59 Intake Total 500 20 Output Total 1480 650 Balance -980 -630 Weight 102 kg 99.2 kg Intake: IV 20 20 Invasive Line 1 20 20 Oral 480 0 Output: Urine 1480 650 Other: Voiding Method External Catheter External Catheter - Labs CBC & Chem 7: 01/15/24 11:24 01/15/24 11:24 Labs: Abnormal Lab Results - Last 24 Hours (Table) 01/13/24 Range/Units 09:12 Free [place] LC, Quant 2.50 H (0.33-1.94) mg/dL
[2024-01-16 03:09] VITALS: RESP 16
[2024-01-16] MEDS: TORSEMIDE 20 MG TAB PO SCH (09:16)
--- NOTE | 2024-01-16 10:59 | P.PN ---
Subjective HISTORY OF PRESENT ILLNESS: This is a 83-year-old male with a past medical history significant for hypertension, hyperlipidemia, and congestive heart failure. Patient follows in the office with Dr. Baron. We have been asked to see the patient in consultation for congestive heart failure. Patient examined at the bedside in the ER. Patient states he has been feeling SOB for the past few weeks. He reports increased weight gain as well. He was found to elevated BP. Patient does report his blood pressures have been running higher at home. Patient was found to be in congestive heart failure and was started on IV Lasix. DIAGNOSTICS: - EKG reveals sinus mechanism with right bundle branch block. No signs of acute ischemia - Chest xray findings most consistent with mild CHF. Pulmonary vascular congestion and mild interstitial edema with probable mild cardiomegaly. - Laboratory data: WBC 9.6. Hemoglobin 11.7. Platelet count 220. Sodium 140. Potassium 4.1. BUN 29. Creatinine 0.71. Troponin 0.046. 0.054. 0.067. proBNP 7640. - Current home cardiac medications include aspirin 81 mg daily, Lipitor 10 mg at night, metoprolol tartrate 12.5 mg twice a day, Demadex 20 mg daily, lisinopril 20 mg daily - Most recent echocardiogram obtained in October 2023 revealed ejection fraction 55 to 60%, severe concentric LVH, mild aortic stenosis with peak gradient of 17 and mean gradient of 8 mmHg, mild aortic regurgitation, mild tricuspid regurgitation -Patient underwent Lexiscan stress test in October 2023 at the office which was negative for ischemia 01/14/2024 Patient examined this morning at the bedside. Patient currently denies chest pain or pressure. He reports mild shortness of breath this morning but improved from yesterday. Serum protein electrophoresis 6.7. [place]/lambda light chains remain pending. Patient remains on IV diuretics 40 mg every 12 hours. BUN 24. Creatinine 0.88. Patient's blood pressure better controlled today after antihypertensive adjustments made yesterday. Most recent blood pressure 120/70. 01/15/2024 Patient examined this morning at the bedside. Patient denies chest pain or pressure. He denies shortness of breath. He remains on IV diuretics. Creatinine today 1.26. 01/16/2024 Patient examined this morning at the bedside. Patient denies shortness of breath. He denies chest pain or pressure. Patient was transition to oral diuretics yesterday. Vital signs are stable. PHYSICAL EXAM: VITAL SIGNS: Reviewed. GENERAL: Well-developed in no acute distress. HEENT: Head is normocephalic. Pupils are equal, round. Sclerae anicteric. Mucous membranes of the mouth are moist. Neck supple. No JVD or thyromegaly LUNGS: Respirations even and unlabored. Lungs clear to auscultation HEART: Regular rate and rhythm. S1 and S2 heard. Systolic murmur noted. ABDOMEN: Soft. Nondistended. Nontender. EXTREMITIES: Normal range of motion. No clubbing or cyanosis. Peripheral pulses intact. No lower extremity edema NEUROLOGIC: Awake and alert. Oriented x 3. ASSESSMENT: Status post mechanical fall Shortness of breath Acute on chronic heart failure with preserved EF, 55 to 60% Hypertensive urgency Severe concentric LVH, rule out amyloidosis Elevated troponins, type II [place] secondary to oxygen supply/demand mismatch, no evidence of acute coronary syndrome Mild aortic stenosis and mild AI Hypertension Hyperlipidemia PLAN: No need to repeat echocardiogram as this was performed in October 2023 Continue current cardiac medications Patient is stable for discharge home today from a cardiac standpoint Further recommendations pending patient course Nurse practitioner note has been reviewed by physician. Signing provider agrees with the documented findings, assessment, and plan of care documented by SENIOR LINUX UNIX ENGINEER as a scribe. Objective - Vital Signs Vital signs: Vital Signs Temp 97.6 F 01/16/24 08:00 Pulse 68 01/16/24 08:00 Resp 16 01/16/24 08:00 BP 146/73 01/16/24 08:00 Pulse Ox 94 L 01/16/24 08:00 FiO2 Intake & Output 01/15/24 01/16/24 01/16/24 18:59 06:59 18:59 Intake Total 140 480 Output Total 550 300 Balance -410 -300 480 Weight 98.9 kg Intake: IV 20 Invasive Line 1 20 Oral 120 480 Output: Urine 550 300 Other: Voiding Method External Catheter Urinal Urinal # Voids 4 - Labs CBC & Chem 7: 01/15/24 11:24 01/15/24 11:24 Labs: Abnormal Lab Results - Last 24 Hours (Table) 01/15/24 01/15/24 Range/Units 11:24 11:24 WBC 11.5 H (3.8-10.6) k/uL Carbon Dioxide 32 H (22-30) mmol/L BUN 30 H (9-20) mg/dL
[2024-01-16 12:13] VITALS: BP 130/72; PULSE 64; TEMP 98.6
--- NOTE | 2024-01-16 13:44 | P.DS ---
Providers Date of admission: 01/14/24 11:30 Expected date of discharge: 01/16/24 Attending physician: Lorne Dennis MD Consults: 01/12/24 15:23 Consult Physician Routine Consulting Provider: Zack Lizama Consult Reason/Comments: chf Do you want consulting provider notified?: Yes [facility] Course: Discharge Diagnosis: Acute on chronic diastolic heart failure exacerbation. Patient underwent successful IV diuresis and being discharged home to continue aspirin 81 mg d aily, torsemide 20 mg daily, atorvastatin 10 mg nightly, amlodipine 10 mg daily, Farxiga 10 mg daily, lisinopril 40 mg daily, and metoprolol 12.5 mg twice daily. Hypertensive urgency. Continuation of amlodipine 10 mg daily, Farxiga 10 mg daily, lisinopril 40 mg daily, and metoprolol 12.5 mg twice daily. Elevated troponins, type II OH secondary to diastolic heart failure exacerbation. CAD. Continuation of aspirin 81 mg daily, atorvastatin 10 mg nightly, torsemide 20 mg daily, amlodipine 10 mg daily, Farxiga 10 mg daily, lisinopril 40 mg daily, and metoprolol 12.5 mg twice daily. Status post mechanical fall Macular degeneration. Continue brimonidine ophthalmologic drops in both eyes twice daily, latanoprost ophthalmolic drops 1 drop each eye nightly, and timolol ophthalmology drops to both eyes twice daily. Hospital course: Patient is a very pleasant 83-year-old male with a past medical history of CAD, hypertension, hyperlipidemia, chronic diastolic heart failure, and macular degeneration. He presented to the emergency department on 01/12/2024 secondary to reports of shortness of breath. Upon arrival to our facility, patient underwent evaluation in the emergency department. Vital signs upon arrival show blood pressure 188/82, heart rate 62, respiratory rate 18, temp 97.6 F, and SpO2 of 95% on room air. Shortly after arrival blood pressure increased to 206/96 with heart rate of 70. EKG completed showing normal sinus rhythm at 62 bpm with a right bundle branch block. Chest x-ray completed consistent with mild CHF exacerbation. Labs completed and reviewed. CBC showing stable normocytic anemia with hemoglobin of 11.7 otherwise normal findings. Coagulation profile normal findings. BMP showing hyperchloremia with chloride of 112 and mild prerenal azotemia with BUN of 29 otherwise normal findings. Blood glucose 84. Liver profile unremarkable. Troponin was 0.046 with proBNP of 7640. Patient admitted under our services for acute on chronic diastolic heart failure exacerbation and elevated troponin with consultation to cardiology. Troponins trended overnight resulting at 0.046, 0.054, and 0.067. Patient was evaluated by cardiology. He underwent successful IV diuresis and being discharged home to continue aspirin 81 mg daily, torsemide 20 mg daily, atorvastatin 10 mg nightly, amlodipine 10 mg daily, Farxiga 10 mg daily, lisinopril 40 mg daily, and metoprolol 12.5 mg twice daily. Physical exam: Vital signs reviewed and stable. General: Nontoxic, no distress and appears stated age. Derm: Skin warm and dry, normal coloration for ethnicity. Head: Atraumatic, normocephalic and symmetric. Eyes: EOM's intact, no lid lag, and anicteric sclera Mouth: no lip lesions, mucus membranes moist Cardiovascular: regular rate and rhythm with normal S1S2, soft systolic murmur, positive posterior tibial pulses bilaterally, and cap refill < 2 seconds. Lungs: Respirations even, regular, and unlabored on room air. Lungs diminished. No rhonchi, rales, crackles, or wheezes noted. Abdominal: soft, nontender to palpation, no guarding, no appreciable organomegaly Ext: ROM intact. No gross muscle atrophy, 1+ BLE edema, no contractures Neuro: Speech clear, face symmetrical and CN II-XII grossly intact with no noted focal neuro deficits Psych: Alert and oriented to person, place, time, and situation. Appropriate and pleasant affect. A total of 36 minutes of time were spent preparing this complex discharge summary. Pt was discharged on 01/16/2024 at 9:56 AM Patient was seen independently by Nurse Practitioner. This document was prepared using [employer] dictation software. Please allow for errors in clinical biochemist while rare they do occur. I reviewed the documentation as provided by the JASON above, who is the original author of this note. I agree with the documented assessment and plan, with the following changes: none Patient Condition at Discharge: Stable Plan - Discharge Summary Discharge Rx Participant: No New Discharge Prescriptions: New Dapagliflozin Propanediol [Farxiga] 10 mg PO DAILY 30 Days #30 tab amLODIPine [Norvasc] 10 mg PO DAILY 30 Days #30 tab Continue Brimonidine Tartrate [Alphagan P 0.2% Ophth Soln] 1 drop BOTH EYES BID lisinopriL [Zestril] 20 mg PO DAILY Tamsulosin [Flomax] 0.4 mg PO HS Torsemide [Demadex] 20 mg PO DAILY #30 tab Timolol 0.5% Ophth Soln [Timoptic 0.5% Ophth Soln] 1 drop BOTH EYES BID Metoprolol Tartrate [Lopressor] 12.5 mg PO BID Latanoprost [Latanoprost 0.005%] 1 drop BOTH EYES HS Aspirin 81 mg PO DAILY #30 tab Vit C/E/Zn/Coppr/Lutein/Zeaxan [Preservision Areds 2 Softgel] 1 cap PO DAILY Atorvastatin [Lipitor] 10 mg PO HS Discharge Medication List Brimonidine Tartrate [Alphagan P 0.2% Ophth Soln] 1 drop BOTH EYES BID 10/24/23 [History] Latanoprost [Latanoprost 0.005%] 1 drop BOTH EYES HS 10/24/23 [History] Tamsulosin [Flomax] 0.4 mg PO HS 10/24/23 [History] lisinopriL [Zestril] 20 mg PO DAILY 10/24/23 [History] Aspirin 81 mg PO DAILY #30 tab 10/25/23 [Rx] Torsemide [Demadex] 20 mg PO DAILY #30 tab 10/25/23 [Rx] Atorvastatin [Lipitor] 10 mg PO HS 01/12/24 [History] Metoprolol Tartrate [Lopressor] 12.5 mg PO BID 01/12/24 [History] Timolol 0.5% Ophth Soln [Timoptic 0.5% Ophth Soln] 1 drop BOTH EYES BID 01/12/24 [History] Vit C/E/Zn/Coppr/Lutein/Zeaxan [Preservision Areds 2 Softgel] 1 cap PO DAILY 01/12/24 [History] Dapagliflozin Propanediol [Farxiga] 10 mg PO DAILY 30 Days #30 tab 01/16/24 [Rx] amLODIPine [Norvasc] 10 mg PO DAILY 30 Days #30 tab 01/16/24 [Rx] Follow up Appointment(s)/Referral(s): Vaughn Montenegro DO [Primary Care Provider] - 1-2 days Chris Baron MD [STAFF PHYSICIAN] - 01/27/24 3:15 pm Patient Instructions/Handouts: Heart Failure (DC) Activity/Diet/Wound Care/Special Instructions: . Activity: As tolerated. Take breaks as needed. Diet: Heart healthy and carb consistent diet. Avoid salts, or foods with hidden salts such as canned or boxed foods and frozen dinners. Extra salt makes your heart work harder and traps the fluid in your body for longer. Special Instructions: Weigh yourself every morning after you urinate. If you gain 3 pounds overnight or more than 5 pounds in one week, call your primary physician and digital media designer for guidance on your medications or they may want to see you in their office. Keep a daily log of your weights and be sure to bring with you at follow up visits with your PCP and digital media designer. Take all of your medications as directed, especially your water pills. NEVER skip a dose. And remember to keep all of your doctor's appointments and follow- up as needed. Elevate your legs when you are not up moving around to help with circulation and prevent swelling. Compression stockings are also a great way to improve lower extremity circulation and prevent/improve lower extremity edema. Call your primary care provider and digital media designer if you notice any extra swelling in your legs, ankles, feet or abdomen, if you have a new dry cough, if your shortness of breath worsens with activity or at rest, or if you feel more fatigued. Thank you for allowing us to participate in your care, it was truly a pleasure having you for our patient!!! . Discharge Disposition: HOME SELF-CARE
[2024-01-20 15:25] LABS: Albumin 3.77 g/dL (3.80-4.90); Gamma Globulin 0.89 g/dL (0.70-1.50)
== END 2024-01-16 16:56 | disposition home or self-care (01) | DRG 280 ==
LOC: EC 13:04 → 3SCARD 15:24 → OBSVTOIN 01-14 11:30
PROVIDERS: ADMIT Internal Medicine; ATTEND Internal Medicine
DX: I11.0 Hypertensive heart disease with heart failure (principal); I50.33 Acute on chronic diastolic (congestive) heart failure; I21.A1 Myocardial infarction type 2; E85.9 Amyloidosis, unspecified; N40.0 Benign prostatic hyperplasia without lower urinary tract symptoms; I45.10 Unspecified right bundle-branch block; I25.10 Atherosclerotic heart disease of native coronary artery without angina pectoris; I16.0 Hypertensive urgency; E78.5 Hyperlipidemia, unspecified; H40.9 Unspecified glaucoma; H35.30 Unspecified macular degeneration; D64.9 Anemia, unspecified; F41.9 Anxiety disorder, unspecified; E87.8 Other disorders of electrolyte and fluid balance, not elsewhere classified; Z87.891 Personal history of nicotine dependence; Z79.899 Other long term (current) drug therapy; Z79.84 Long term (current) use of oral hypoglycemic drugs; Z79.82 Long term (current) use of aspirin; Z91.81 History of falling; I25.2 Old myocardial infarction; Z28.310 Unvaccinated for COVID-19; Z87.440 Personal history of urinary (tract) infections
CPT/HCPCS: 36415; 71045; 80048; 80053; 83735; 83880; 83883; 84165; 84484; 85025; 85027; 85610; 85730; 93005; 94640; 96372; 96374; 96376; 99285

== ENCOUNTER 2024-10-03 11:53 | Observation (INO) | payer OTHER, MEDICARE, BC ==
[2024-10-03 12:51] LABS: Basophils # (A) 0.03 10*3/uL (0.00-0.10); Basophils % (A) 0.4 %; Eosinophils # (A) 0.26 10*3/uL (0.04-0.35); Eosinophils % (A) 3.5 %; HCT 38.8 % (39.6-50.0); HGB 13.2 g/dL (13.0-17.0); Lymphocytes # (A) 1.26 10*3/uL (0.90-5.00); Lymphocytes % (A) 17.1 %; MCH 32.6 pg (27.0-32.0); MCV 95.8 fL (80.0-97.0); Mean Platelet Volume 9.5 fL (9.5-12.2); Monocytes # (A) 0.79 10*3/uL (0.20-1.00); Monocytes % (A) 10.7 %; Neutrophils # (A) 5.01 10*3/uL (1.80-7.70); Platelet Count 222 10*3/uL (140-440); RBC 4.05 10*6/uL (4.40-5.60); RDW 13.7 % (11.5-14.5); WBC 7.37 10*3/uL (4.50-10.00)
--- NOTE | 2024-10-03 12:54 | ED ---
General Adult HPI - General Chief complaint: Chest Pain Stated complaint: Chest pain Time Seen by Provider: 10/03/24 12:00 Source: patient, family, RN notes reviewed, old records reviewed Mode of arrival: wheelchair - History of Present Illness Initial comments: This is an 84-year-old male who presents to the emergency department complaining of chest pain. Patient states is left-sided feels like pressure. Patient denies any radiation of the pain but he does state that there is associated shortness of breath. Patient states the pain comes and goes and currently is not having any pain. Patient denies any nausea vomiting. Patient denies any diaphoretic episode. Patient states he does have high blood pressure history and he has had a heart attack in the past. Patient states he had an upper respiratory infection over the last 3 weeks with cough but no sputum production. - Related Data Home Medications Medication Instructions Recorded Confirmed Brimonidine Tartrate [Alphagan P 1 drop BOTH EYES BID 10/24/23 01/12/24 0.2% Ophth Soln] Latanoprost [Latanoprost 0.005%] 1 drop BOTH EYES HS 10/24/23 01/12/24 Tamsulosin [Flomax] 0.4 mg PO HS 10/24/23 01/12/24 lisinopriL [Zestril] 20 mg PO DAILY 10/24/23 01/12/24 Atorvastatin [Lipitor] 10 mg PO HS 01/12/24 01/12/24 Metoprolol Tartrate [Lopressor] 12.5 mg PO BID 01/12/24 01/12/24 Timolol 0.5% Ophth Soln [Timoptic 1 drop BOTH EYES BID 01/12/24 01/12/24 0.5% Ophth Soln] Vit C/E/Zn/Coppr/Lutein/Zeaxan 1 cap PO DAILY 01/12/24 01/12/24 [Preservision Areds 2 Softgel] Previous Rx's Medication Instructions Recorded Aspirin 81 mg PO DAILY #30 tab 10/25/23 Torsemide [Demadex] 20 mg PO DAILY #30 tab 10/25/23 Dapagliflozin Propanediol [Farxiga] 10 mg PO DAILY 30 Days #30 tab 01/16/24 amLODIPine [Norvasc] 10 mg PO DAILY 30 Days #30 tab 10/04/24 Allergies Allergy/AdvReac Type Severity Reaction Status Date / Time No Known Allergies Allergy Verified 10/03/24 12:03 Review of Systems ROS Statement: Those systems with pertinent positive or pertinent negative responses have been documented in the HPI. ROS Other: All systems not noted in ROS Statement are negative. Past Medical History Past Medical History: Heart Failure, Hypertension, Myocardial Infarction (ID) Additional Past Medical History / Comment(s): macular degeneration , chronic uti Last Myocardial Infarction Date:: Unknown History of Any Multi-Drug Resistant Organisms: None Reported Past Surgical History: Orthopedic Surgery Additional Past Surgical History / Comment(s): Left ankle orthopedic surgery related to fracture. Past Anesthesia/Blood Transfusion Reactions: No Reported Reaction Past Psychological History: No Psychological Hx Reported Smoking Status: Former smoker Past Alcohol Use History: None Reported Past Drug Use History: None Reported - Past Family History Mother History Unknown: Yes Father History Unknown: Yes General Exam - General Exam Comments Initial Comments: GENERAL: Patient is well-developed and well-nourished. Patient is nontoxic and well- hydrated and is in no acute distress. ENT: Neck is soft and supple. No significant lymphadenopathy is noted. Oropharynx is clear. Moist mucous membranes. Neck has full range of motion without eliciting any pain. EYES: The sclera were anicteric and conjunctiva were pink and moist. Extraocular movements were intact and pupils were equal round and reactive to light. Eyelids were unremarkable. PULMONARY: Unlabored respirations. Good breath sounds bilaterally. No audible rales rhonchi or wheezing was noted. CARDIOVASCULAR: There is a regular rate and rhythm without any murmurs gallops or rubs. ABDOMEN: Soft and nontender with normal bowel sounds. SKIN: Skin is clear with no lesions or rashes and otherwise unremarkable. NEUROLOGIC: Patient is alert and oriented x3. Cranial nerves II through XII are grossly intact. Motor and sensory are also intact. Normal speech, volume and content. Symmetrical smile. MUSCULOSKELETAL: Normal extremities with adequate strength and full range of motion. No lower extremity swelling or edema. No calf tenderness. LYMPHATICS: No significant lymphadenopathy is noted PSYCHIATRIC: Normal psychiatric evaluation. Course Vital Signs 10/03/24 11:58 Temperature 98.2 F Pulse Rate 61 Respiratory 18 Rate Blood Pressure 104/61 O2 Sat by Pulse 95 Oximetry Medical Decision Making - Medical Decision Making EKG is interpreted by myself EKG shows a sinus bradycardia at 58 bpm OK interval is 290 QRS is 139 QT interval is 436 QTc is 434. Patient has a right bundle branch block and there is no ST segment elevation. Was pt. sent in by a medical professional or institution ([facility] Salvador, REAL ESTATE INVESTOR, urgent care, hospital, or fci...) When possible be specific @ -No Did you speak to anyone other than the patient for history (EMS, parent, family, police, friend...)? What history was obtained from this source @ -No Did you review nursing and triage notes (agree or disagree)? Why? @ -I reviewed and agree with nursing and triage notes Were old charts reviewed (outside hosp., previous admission, EMS record, old EKG, old radiological studies, urgent care reports/EKG's, fci records)? Report findings @ -No old charts were reviewed Differential Diagnosis? @ -Differential Chest Pain: Stable Angina, Unstable Angina, STEMI, NSTEMI Aortic Dissection, Pneumothorax, Musculoskeletal, Esophageal Spasm GERD, Cholecystitis, Pancreatitis, Zoster, thi s is not meant to be an all-inclusive list. EKG interpreted by me (3pts min.). @ -As above X-rays interpreted by me (1pt min.). @ -Chest x-ray shows no acute abnormality CT interpreted by me (1pt min.). @ -None done U/S interpreted by me (1pt. min.). @ -None done What testing was considered but not performed or refused? (CT, X-rays, U/S, labs)? Why? @ -None What meds were considered but not given or refused? Why? @ -None Did you discuss the management of the patient with other professionals (casey driver i.e. LUCREC[facility] Salvador, REAL ESTATE INVESTOR, lab, RT, psych nurse, manager social, geographic information systems analyst, teacher, commercial loan officer, correctional counselor/case manager)? Give summary @ -I spoke with Dr. Dennison and he agreed to admit the patient admit the patient with admitting orders Was smoking cessation discussed for >3mins.? @ -No Was critical care preformed (if so, how long)? @ -No Were there social determinants of health that impacted care today? How? (Homelessness, low income, unemployed, alcoholism, drug addiction, transportation, low edu. Level, literacy, decrease access to med. care, fdc, rehab)? @ -No Was there de-escalation of care discussed even if they declined (Discuss DNR or withdrawal of care, Hospice)? DNR status @ -No What co-morbidities impacted this encounter? (DM, HTN, Smoking, COPD, CAD, Cancer, CVA, ARF, Chemo, Hep., AIDS, mental health diagnosis, sleep apnea, morbid obesity)? @ -None Was patient admitted / discharged? Hospital course, mention meds given and route, prescriptions, significant lab abnormalities, going to OR and other pertinent info. @ -Patient's lab work and x-rays were all within normal range patient continue to have intermittent chest pain so patient will be admitted to [facility] with a consult cardiology Undiagnosed new problem with uncertain prognosis? @ -No Drug Therapy requiring intensive monitoring for toxicity (Heparin, Nitro, Insulin, Cardizem)? @ -No Were any procedures done? @ -No Diagnosis/symptom? @ -Chest pain Acute, or Chronic, or Acute on Chronic? @ -Acute Uncomplicated (without systemic symptoms) or Complicated (systemic symptoms)? @ -Comp Side effects of treatment? @ -No Exacerbation, Progression, or Severe Exacerbation? @ -No Poses a threat to life or bodily function? How? (Chest pain, USA, ID, pneumonia, PE, COPD, DKA, ARF, appy, cholecystitis, CVA, Diverticulitis, Homicidal, Suicidal, threat to staff... and all critical care pts) @ -Yes this could lead to an ID and endorgan dysfunction - Lab Data Result diagrams: 10/03/24 12:37 10/03/24 12:37 Lab Results 10/03/24 10/03/24 10/03/24 Range/Units 12:37 12:37 12:37 WBC 7.37 (4.50-10.00) 10*3/uL RBC 4.05 L (4.40-5.60) 10*6/uL Hgb 13.2 (13.0-17.0) g/dL Hct 38.8 L (39.6-50.0) % MCV 95.8 (80.0-97.0) fL MCH 32.6 H (27.0-32.0) pg MCHC 34.0 (32.0-37.0) g/dL Plt Count 222 (140-440) 10*3/uL MPV 9.5 (9.5-12.2) fL Immature Gran % (Auto) 0.3 % Neutrophils % 68.0 % Lymphocytes % 17.1 % Monocytes % 10.7 % Eosinophils % 3.5 % Basophils % 0.4 % Immature Gran # 0.02 (0.00-0.04) 10*3/uL Neutrophils # 5.01 (1.80-7.70) 10*3/uL Lymphocytes # 1.26 (0.90-5.00) 10*3/uL Monocytes # 0.79 (0.20-1.00) 10*3/uL Eosinophils # 0.26 (0.04-0.35) 10*3/uL Basophils # 0.03 (0.00-0.10) 10*3/uL PT 10.5 (10.0-12.5) sec INR 0.9 (<1.2) APTT 22.3 (22.0-30.0) sec Sodium 140 (137-145) mmol/L Potassium 4.1 (3.5-5.1) mmol/L Chloride 104 (98-107) mmol/L Carbon Dioxide 24 (22-30) mmol/L Anion Gap 12 mmol/L BUN 27 H (9-20) mg/dL Creatinine 1.00 (0.66-1.25) mg/dL Est GFR (CKD-EPI)AfAm 79 (>60 ml/min/1.73 sqM) Est GFR (CKD-EPI)NonAf 68 (>60 ml/min/1.73 sqM) Glucose 81 (74-99) mg/dL Calcium 8.8 (8.4-10.2) mg/dL Magnesium 2.2 (1.6-2.3) mg/dL Total Bilirubin 0.4 (0.2-1.3) mg/dL AST 20 (17-59) U/L ALT 14 (4-49) U/L Alkaline Phosphatase 35 L (38-126) U/L Troponin I (0.000-0.034) ng/mL Total Protein 5.9 L (6.3-8.2) g/dL Albumin 3.6 (3.5-5.0) g/dL 10/03/24 Range/Units 12:37 WBC (4.50-10.00) 10*3/uL RBC (4.40-5.60) 10*6/uL Hgb (13.0-17.0) g/dL Hct (39.6-50.0) % MCV (80.0-97.0) fL MCH (27.0-32.0) pg MCHC (32.0-37.0) g/dL Plt Count (140-440) 10*3/uL MPV (9.5-12.2) fL Immature Gran % (Auto) % Neutrophils % % Lymphocytes % % Monocytes % % Eosinophils % % Basophils % % Immature Gran # (0.00-0.04) 10*3/uL Neutrophils # (1.80-7.70) 10*3/uL Lymphocytes # (0.90-5.00) 10*3/uL Monocytes # (0.20-1.00) 10*3/uL Eosinophils # (0.04-0.35) 10*3/uL Basophils # (0.00-0.10) 10*3/uL PT (10.0-12.5) sec INR (<1.2) APTT (22.0-30.0) sec Sodium (137-145) mmol/L Potassium (3.5-5.1) mmol/L Chloride (98-107) mmol/L Carbon Dioxide (22-30) mmol/L Anion Gap mmol/L BUN (9-20) mg/dL Creatinine (0.66-1.25) mg/dL Est GFR (CKD-EPI)AfAm (>60 ml/min/1.73 sqM) Est GFR (CKD-EPI)NonAf (>60 ml/min/1.73 sqM) Glucose (74-99) mg/dL Calcium (8.4-10.2) mg/dL Magnesium (1.6-2.3) mg/dL Total Bilirubin (0.2-1.3) mg/dL AST (17-59) U/L ALT (4-49) U/L Alkaline Phosphatase (38-126) U/L Troponin I <0.012 (0.000-0.034) ng/mL Total Protein (6.3-8.2) g/dL Albumin (3.5-5.0) g/dL Disposition Clinical Impression: Chest pain Disposition: ADMITTED IP TO THIS HOSP Referrals: Flor Oshea DO [Primary Care Provider] - 1-2 days Time of Disposition: 13:36
[2024-10-03 12:57] LABS: INR 0.9 (<1.2); Partial Thromboplastin Time 22.3 sec (22.0-30.0); Prothrombin Time 10.5 sec (10.0-12.5)
[2024-10-03 12:58] LABS: ALT 14 U/L (4-49); AST 20 U/L (17-59); African American GFR (CKD) 79 (>60 ml/min/1.73 sqM); Albumin 3.6 g/dL (3.5-5.0); Alkaline Phosphatase 35 U/L (38-126); Anion Gap 12 mmol/L; Blood Urea Nitrogen 27 mg/dL (9-20); Calcium 8.8 mg/dL (8.4-10.2); Carbon Dioxide 24 mmol/L (22-30); Chloride 104 mmol/L (98-107); Glucose 81 mg/dL (74-99); Magnesium 2.2 mg/dL (1.6-2.3); Non-African American GFR(CKD) 68 (>60 ml/min/1.73 sqM); Potassium 4.1 mmol/L (3.5-5.1); Sodium 140 mmol/L (137-145); Total Bilirubin 0.4 mg/dL (0.2-1.3); Total Protein 5.9 g/dL (6.3-8.2)
--- NOTE | 2024-10-03 13:21 | XR ---
Chest, 2 view. CLINICAL INDICATION: Male, 84 years old with history of Chest Pain COMPARISON: 10/24/2023 TECHNIQUE: PA and lateral views the chest are obtained. FINDINGS: There is hazy opacity in the left midlung laterally which could be technical but the possibility of a n early pneumonic infiltrate cannot be excluded. Right lung is clear. The heart is mildly prominent but the pulmonary vasculature is not congested. No pleural effusion or pneumothorax. The osseous structures are intact. IMPRESSION: Cannot exclude a early developing infiltrate in the left mid lung. Short-term follow-up is recommende d [facility] Arlene Milan, , 10/03/2024 1:18 PM
[2024-10-03] MEDS: ASPIRIN 81 MG PO STA (13:23)
[2024-10-03] MEDS: NITROGLYCERIN OINT 1 INCH/GM PACKET TOPICAL STA (13:23)
[2024-10-03] MEDS ORDERED: NITROGLYCERIN SL TABS 0.4 MG TAB SUBLINGUAL PRN (13:36)
[2024-10-03] MEDS ORDERED: LIDOCAINE 4% PATCH TOPICAL PRN (16:34)
[2024-10-03] MEDS: NITROGLYCERIN OINT 1 INCH/GM PACKET TOPICAL SCH (19:26)
[2024-10-03] MEDS: DORZOLAMIDE HCL 2% DROPS 10 ML BTL BOTH EYES SCH (21:13)
[2024-10-03] MEDS: ATORVASTATIN 10 MG TAB PO SCH (21:13)
[2024-10-03] MEDS: METOPROLOL TARTRATE 12.5 MG TAB PO SCH (21:13)
[2024-10-03] MEDS: BRIMONIDINE TARTRATE 0.2% DROPS 5 ML BTL BOTH EYES SCH (21:13)
[2024-10-03] MEDS: TAMSULOSIN 0.4 MG CAP.ER.24H PO SCH (21:31)
[2024-10-04 05:52] VITALS: TEMP 97.8
[2024-10-04] MEDS: lisinopriL 20 MG TAB PO SCH (08:43)
[2024-10-04] MEDS: ASPIRIN 325 MG TAB PO SCH (08:43)
[2024-10-04] MEDS: amLODIPine 10 MG TAB PO SCH (08:43)
[2024-10-04 10:23] LABS: Chol/HDL Ratio 2.73 Ratio; LDL Cholesterol,Calculated 40.8 mg/dL (0.0-131.0)
[2024-10-04] MEDS: SPIRONOLACTONE 25 MG TAB PO SCH (10:25)
--- NOTE | 2024-10-04 10:38 | P.CRDCN ---
History of Present Illness History of present illness: HISTORY OF PRESENTING ILLNESS This is a pleasant 84-year-old male past medical history significant for chronic diastolic heart failure, hypertension and dyslipidemia. He follows in the office with Dr. Baron. We have been asked to see in consultation for chest pain. He presented to the hospital with symptoms of shortness of breath, cough and congestion. He felt his symptoms were somewhat related to the heat making it difficult for him to breathe. He denies chest pain, dizziness or palpitations. DIAGNOSTICS EKG reveals sinus bradycardia with a first-degree AV block, right bundle branch block and heart rate of 58. Chest xray early developing infiltrate in the left midlung. Laboratory reviewed, WBC 7.3, hemoglobin 13.2, platelets 222, sodium 140, potassium 4.1, creatinine 1.0, magnesium 2.2, troponin negative x 3, LDL 40. Current cardiac medications include Lipitor 10 mg at bedtime, metoprolol tartrate 12.5 mg twice daily, torsemide 20 mg daily, amlodipine 10 mg daily, lisinopril 20 mg daily and Jardiance 10 mg daily. Most recent stress test performed in the office October 2023 revealed small mild intensity fixed perfusion defect involving the basal inferior wall secondary to soft tissue attenuation with no reversible perfusion defects noted ejection fraction 50%. Most recent echocardiogram obtained October 2023 revealed preserved LV systolic function with ejection fraction 50 to 55%, mild aortic stenosis with a mean gradient of 8, mild aortic regurgitation. REVIEW OF SYSTEMS At the time of my exam: CONSTITUTIONAL: Denies fever or chills. CARDIOVASCULAR: Denies chest pain, orthopnea, PND or palpitations. RESPIRATORY: Denies cough. Complains of shortness of breath. GASTROINTESTINAL: Denies abdominal pain, diarrhea, constipation, nausea or vomiting. MUSCULOSKELETAL: Denies myalgias. NEUROLOGIC: Denies numbness, tingling, headache or weakness. ENDOCRINE: Denies fatigue, weight change, polydipsia or polyurina. GENITOURINARY: Denies burning, hematuria or urgency with micturation. HEMATOLOGIC: Denies history of anemia or bleeding. PHYSICAL EXAMINATION Blood pressure 127/69 heart rate 60 afebrile and maintaining oxygen saturation on nasal cannula. CONSTITUTIONAL: No apparent distress. HEENT: Head is normocephalic. Pupils are equal, round. Sclerae anicteric. Mucous membranes of the mouth are moist. No JVD. No carotid bruit. CHEST EXAMINATION: Lungs are clear to auscultation. No chest wall tenderness is noted on palpation or with deep breathing. HEART EXAMINATION: Regular rate and rhythm. S1, S2 heard. Soft systolic ejection murmur at the base, no gallops or rub. ABDOMEN: Soft, nontender. EXTREMITIES: 2+ peripheral pulses, no lower extremity edema and no calf tenderness. NEUROLOGIC EXAMINATION: Patient is awake, alert and oriented x3. ASSESSMENT Shortness of breath likely secondary to developing pneumonia Acute on chronic diastolic heart failure Hypertension Dyslipidemia PLAN An acute coronary event has been ruled out. Symptoms are atypical for angina, likely related to developing pneumonia with mild diastolic heart failure. Decrease aspirin to 81 mg daily. Decrease lisinopril to 10 mg daily. Add Aldactone 12.5 mg daily. He is currently wearing oxygen, discussed with the nurse to wean off oxygen. Stable for discharge from a cardiac perspective, follow-up as an outpatient with Dr. Baron. Nurse Practitioner note has been reviewed, I agree with a documented findings and plan of care. Patient was seen and examined. Past Medical History Past Medical History: Heart Failure, Hypertension, [place] Inf[place] ([place]) Additional Past Medical History / Comment(s): macular degeneration , chronic uti Last Myocardial Infarction Date:: Unknown History of Any Multi-Drug Resistant Organisms: None Reported Past Surgical History: Orthopedic Surgery Additional Past Surgical History / Comment(s): Left ankle orthopedic surgery related to fracture. Past Anesthesia/Blood Transfusion Reactions: No Reported Reaction Past Psychological History: No Psychological Hx Reported Smoking Status: Former smoker Past Alcohol Use History: None Reported Past Drug Use History: None Reported - Past Family History Mother History Unknown: Yes Father History Unknown: Yes Medications and Allergies Home Medications Medication Instructions Recorded Confirmed Type Tamsulosin [Flomax] 0.4 mg PO HS 10/24/23 10/03/24 History lisinopriL [Zestril] 20 mg PO DAILY 10/24/23 10/03/24 History Torsemide [Demadex] 20 mg PO DAILY #30 tab 10/25/23 10/03/24 Rx Atorvastatin [Lipitor] 10 mg PO HS 01/12/24 10/03/24 History Metoprolol Tartrate [Lopressor] 12.5 mg PO BID 01/12/24 10/03/24 History Vit C/E/Zn/Coppr/Lutein/Zeaxan 1 cap PO BID 01/12/24 10/03/24 History [Preservision Areds 2 Softgel] amLODIPine [Norvasc] 10 mg PO DAILY 30 Days #30 tab 01/16/24 10/03/24 Rx Brinzolamide/Brimonidine Tart 1 drop BOTH EYES BID 10/03/24 10/03/24 History [Simbrinza 1%-0.2% Eye Drop] Empagliflozin [Jardiance] 10 mg PO DAILY 10/03/24 10/03/24 History Lidocaine 5% Patch [Lidoderm] 1 patch TRANSDERM DAILY PRN 10/03/24 10/03/24 History Allergies Allergy/AdvReac Type Severity Reaction Status Date / Time bee venom protein (honey bee) Allergy Anaphylaxis Verified 10/03/24 14:53 [facility] alendronate sodium AdvReac Nightmares Verified 10/03/24 14:53 [facility] diltiazem [From Tiazac] AdvReac edema & Verified 10/03/24 14:53 Shortness of Breath [facility] risedronate sodium AdvReac Nightmares Verified 10/03/24 14:53 [facility] Physical Exam Vitals: Vital Signs Temp Pulse Pulse Resp BP BP Pulse Ox 10/04/24 08:19 97 10/04/24 05:50 97.8 F 60 17 127/69 96 10/04/24 02:00 98.2 F 60 17 95/51 94 L 10/03/24 21:26 97.5 F L 67 18 136/77 95 10/03/24 20:29 70 18 145/70 95 10/03/24 18:05 62 18 121/62 95 10/03/24 11:58 98.2 F 61 18 104/61 95 Intake and Output 10/03/24 10/04/24 10/04/24 22:59 06:59 14:59 Other: Voiding Method Toilet Toilet # Voids 2 3 Weight 109.316 kg Results 10/03/24 12:37 10/03/24 12:37 Cardiac Enzymes 10/03/24 10/03/24 10/03/24 Range/Units 12:37 12:37 15:40 AST 20 (17-59) U/L Troponin I <0.012 <0.012 (0.000-0.034) ng/mL 10/03/24 Range/Units 18:23 AST (17-59) U/L Troponin I <0.012 (0.000-0.034) ng/mL Coagulation 10/03/24 Range/Units 12:37 PT 10.5 (10.0-12.5) sec APTT 22.3 (22.0-30.0) sec Lipids 10/03/24 Range/Units 12:37 Triglycerides 84.50 (0.00-149.00) mg/dL Cholesterol 91.00 (0.00-200.00) mg/dL HDL Cholesterol 33.30 L (40.00-60.00) mg/dL Cholesterol/HDL Ratio 2.73 Ratio CBC 10/03/24 Range/Units 12:37 WBC 7.37 (4.50-10.00) 10*3/uL RBC 4.05 L (4.40-5.60) 10*6/uL Hgb 13.2 (13.0-17.0) g/dL Hct 38.8 L (39.6-50.0) % Plt Count 222 (140-440) 10*3/uL Comprehensive Metabolic Panel 10/03/24 Range/Units 12:37 Sodium 140 (137-145) mmol/L Potassium 4.1 (3.5-5.1) mmol/L Chloride 104 (98-107) mmol/L Carbon Dioxide 24 (22-30) mmol/L BUN 27 H (9-20) mg/dL Creatinine 1.00 (0.66-1.25) mg/dL Glucose 81 (74-99) mg/dL Calcium 8.8 (8.4-10.2) mg/dL AST 20 (17-59) U/L ALT 14 (4-49) U/L Alkaline Phosphatase 35 L (38-126) U/L Total Protein 5.9 L (6.3-8.2) g/dL Albumin 3.6 (3.5-5.0) g/dL Current Medications Generic Name Dose Route Start Last Admin Trade Name Freq PRN Reason Stop Dose Admin Amlodipine Besylate 10 mg 10/04/24 09:00 10/04/24 08:43 Amlodipine 10 Mg Tab PO 10 mg DAILY [facility] Administration Aspirin 81 mg 10/05/24 09:00 Aspirin 81 Mg PO DAILY [facility] Atorvastatin Calcium 10 mg 10/03/24 21:00 10/03/24 21:13 Atorvastatin 10 Mg Tab PO 10 mg HS [facility] Administration Brimonidine Tartrate 1 drops 10/03/24 21:00 10/04/24 08:40 Brimonidine Tartrate 0.2% Drops 5 Ml Btl BOTH EYES 1 drops BID [facility] Administration Dorzolamide HCl 1 drops 10/03/24 21:00 10/04/24 08:41 Dorzolamide Hcl 2% Drops 10 Ml Btl BOTH EYES 1 drops BID [facility] Administration Lidocaine 1 patch 10/03/24 16:34 Lidocaine 4% Patch TOPICAL DAILY PRN Pain Lisinopril 10 mg 10/05/24 09:00 Lisinopril 10 Mg Tab PO DAILY [facility] Metoprolol Tartrate 12.5 mg 10/03/24 21:00 10/03/24 21:13 Metoprolol Tartrate 12.5 Mg Tab PO 12.5 mg BID [facility] Administration Nitroglycerin 0.4 mg 10/03/24 13:36 Nitroglycerin Sl Tabs 0.4 Mg Tab SUBLINGUAL Q5M PRN Chest Pain Spironolactone 12.5 mg 10/04/24 09:30 Spironolactone 25 Mg Tab PO DAILY [facility] Tamsulosin HCl 0.4 mg 10/03/24 21:00 10/03/24 21:31 Tamsulosin 0.4 Mg Cap.Er.24h PO 0.4 mg HS [facility] Administration Intake and Output 10/03/24 10/04/24 10/04/24 22:59 06:59 14:59 Other: Voiding Method Toilet Toilet # Voids 2 3 Weight 109.316 kg 10/03/24 12:37 10/03/24 12:37
[2024-10-04] MEDS: IPRATROPIUM-ALBUTEROL 3 ML NEB INHALATION STA (11:28)
--- NOTE | 2024-10-04 14:06 | P.HPIM ---
History of Present Illness H&P Date: 10/04/24 This is a pleasant 84-year-old male with medical history significant for hypertension, heart failure. Patient follows with Dr. Baron on an outpatient basis. He comes into the hospital complaints of chest pain. Patient states that the chest pain is left-sided and feels a Pressure-like sensation denies any radiation. He states this has been intermittent over the last few years. Patient was complaining of shortness of breath and cough. He states he feels like the heat over the last few days combined with not having air conditioning contributed to his labored breathing. Denies any nausea vomiting or diarrhea. Chest x-ray shows an possible early developing infiltrate in the left midlung. EKG reveals normal sinus bradycardia with first-degree AV block and a right bundle branch block. Left anterior fascicular. Troponins negative x 3. Patient is currently afebrile, heart rate of 60, blood pressure 127/69 she is 96% on room air. Patient is admitted in observation with a cardiac consulta tion. REVIEW OF SYSTEMS: CONSTITUTIONAL: No fever, no malaise, no fatigue. HEENT: No recent visual problems or hearing problems. Denied any sore throat. CARDIOVASCULAR: No chest pain, orthopnea, PND, no palpitations, no syncope. PULMONARY: Reports shortness of breath, no cough, no hemoptysis. GASTROINTESTINAL: No diarrhea, no nausea, no vomiting, no abdominal pain. NEUROLOGICAL: No headaches, no weakness, no numbness. HEMATOLOGICAL: Denies any bleeding or petechiae. GENITOURINARY: Denies any burning micturition, frequency, or urgency. MUSCULOSKELETAL/RHEUMATOLOGICAL: Denies any joint pain, swelling, or any muscle pain. ENDOCRINE: Denies any polyuria or polydipsia. The rest of the 14-point review of systems is negative. PHYSICAL EXAMINATION: GENERAL: The patient is alert and oriented x3, not in any acute distress. Well developed, well nourished. HEENT: Pupils are round and equally reacting to light. EOMI. No scleral icterus. No conjunctival pallor. Normocephalic, atraumatic. No pharyngeal erythema. No thyromegaly. CARDIOVASCULAR: S1 and S2 present. No murmurs, rubs, or gallops. PULMONARY: Faint scattered wheezing ABDOMEN: Soft, nontender, nondistended, normoactive bowel sounds. No palpable organomegaly. MUSCULOSKELETAL: No joint swelling or deformity. EXTREMITIES: No cyanosis, clubbing, or pedal edema. NEUROLOGICAL: Gross neurological examination did not reveal any focal deficits. SKIN: No rashes. Assessment Shortness of breath due to the high heat index Chest pain, atypical ruled out ACS Hypertension Severe concentric left ventricular hypertrophy Mild aortic stenosis and mild aortic insufficiency Mild acute on chronic diastolic CHF Hypertension Hyperlipidemia GI prophylaxis Plan Duonebs PRN ordered Cardiology consultation PT/OT consultation Cardiology has added aldactone Check a procalcitonin level Discharge home later this afternoon The impression and plan of care has been dictated by Kadi Kasper Nurse Practitioner as directed. Dr. fArica MD I have performed a history and physical examination and medical decision making of this patient, discussed the same with the dictator, and agree with the dictators assessment and plan as written, documented as a scribe. Based on total visit time, I have performed more than 50% of this visit. Past Medical History Past Medical History: Heart Failure, Hypertension, Myocardial Infarction ([place]) Additional Past Medical History / Comment(s): macular degeneration , chronic uti Last Myocardial Infarction Date:: Unknown History of Any Multi-Drug Resistant Organisms: None Reported Past Surgical History: Orthopedic Surgery Additional Past Surgical History / Comment(s): Left ankle orthopedic surgery related to fracture. Past Anesthesia/Blood Transfusion Reactions: No Reported Reaction Past Psychological History: No Psychological Hx Reported Smoking Status: Former smoker Past Alcohol Use History: None Reported Past Drug Use History: None Reported - Past Family History Mother History Unknown: Yes Father History Unknown: Yes Medications and Allergies Home Medications Medication Instructions Recorded Confirmed Type Tamsulosin [Flomax] 0.4 mg PO HS 10/24/23 10/03/24 History lisinopriL [Zestril] 20 mg PO DAILY 10/24/23 10/03/24 History Torsemide [Demadex] 20 mg PO DAILY #30 tab 10/25/23 10/03/24 Rx Atorvastatin [Lipitor] 10 mg PO HS 01/12/24 10/03/24 History Metoprolol Tartrate [Lopressor] 12.5 mg PO BID 01/12/24 10/03/24 History Vit C/E/Zn/Coppr/Lutein/Zeaxan 1 cap PO BID 01/12/24 10/03/24 History [Preservision Areds 2 Softgel] amLODIPine [Norvasc] 10 mg PO DAILY 30 Days #30 tab 01/16/24 10/03/24 Rx Brinzolamide/Brimonidine Tart 1 drop BOTH EYES BID 10/03/24 10/03/24 History [Simbrinza 1%-0.2% Eye Drop] Empagliflozin [Jardiance] 10 mg PO DAILY 10/03/24 10/03/24 History Lidocaine 5% Patch [Lidoderm] 1 patch TRANSDERM DAILY PRN 10/03/24 10/03/24 History Allergies Allergy/AdvReac Type Severity Reaction Status Date / Time bee venom protein (honey bee) Allergy Anaphylaxis Verified 10/03/24 14:53 [facility] alendronate sodium AdvReac Nightmares Verified 10/03/24 14:53 [facility] diltiazem [From Tiazac] AdvReac edema & Verified 10/03/24 14:53 Shortness of Breath [facility] risedronate sodium AdvReac Nightmares Verified 10/03/24 14:53 [facility] Physical Exam Vitals: Vital Signs Temp Pulse Pulse Resp BP BP Pulse Ox 10/04/24 08:19 97 10/04/24 05:50 97.8 F 60 17 127/69 96 10/04/24 02:00 98.2 F 60 17 95/51 94 L 10/03/24 21:26 97.5 F L 67 18 136/77 95 10/03/24 20:29 70 18 145/70 95 10/03/24 18:05 62 18 121/62 95 10/03/24 11:58 98.2 F 61 18 104/61 95 Intake and Output 10/03/24 10/04/24 10/04/24 22:59 06:59 14:59 Other: Voiding Method Toilet Toilet # Voids 2 3 Weight 109.316 kg Results CBC & Chem 7: 10/03/24 12:37 10/03/24 12:37 Labs: Abnormal Lab Results - Last 24 Hours (Table) 10/03/24 10/03/24 Range/Units 12:37 12:37 RBC 4.05 L (4.40-5.60) 10*6/uL Hct 38.8 L (39.6-50.0) % MCH 32.6 H (27.0-32.0) pg BUN 27 H (9-20) mg/dL Alkaline Phosphatase 35 L (38-126) U/L Total Protein 5.9 L (6.3-8.2) g/dL Thrombosis Risk Factor Assmnt - Choose All That Apply Each Factor Represents 1 point: Obesity (BMI >25) Each Risk Factor Represents 3 Points: Age 75 years or older Thrombosis Risk Factor Assessment Total Risk Factor Score: 4 Thrombosis Risk Factor Assessment Level: Moderate Risk Assessment and Plan Time with Patient: Less than 30
[2024-10-04 19:56] VITALS: BP 161/69; PULSE 67; RESP 16
[2024-10-05] MEDS ORDERED: lisinopriL 10 MG TAB PO SCH (09:00)
[2024-10-05] MEDS ORDERED: ASPIRIN 81 MG PO SCH (09:00)
--- NOTE | 2024-10-06 16:38 | P.DS ---
Providers Date of admission: 10/03/24 13:36 Attending physician: Arian Dennison Consults: 10/03/24 13:36 Consult Physician Urgent Consulting Provider: [facility] Consult Reason/Comments: Chest pain Do you want consulting provider notified?: Yes Primary care physician: Flor Oshea Hospital Course: Final Diagnosis Shortness of breath due to the high heat index Chest pain, atypical ruled out ACS Hypertension Severe concentric left ventricular hypertrophy Mild aortic stenosis and mild aortic insufficiency Mild acute on chronic diastolic CHF Hypertension Hyperlipidemia Discharge Disposition Patient stable for discharge home. As mentioned cardiology has adjusted medications. Patient was started on Aldactone 12.5 mg daily. He has been weaned off supplemental oxygen. Patient will continue a Medrol Dosepak. He will follow-up with his PCP Dr. Spencer in 1 to 2 days. Hospital Course This is a pleasant 84-year-old male with medical history significant for hypertension, heart failure. Patient follows with Dr. Baron on an outpatient basis. He comes into the hospital complaints of chest pain. Patient states that the chest pain is left-sided and feels a Pressure-like sensation denies any radiation. He states this has been intermittent over the last few years. Patient was complaining of shortness of breath and cough. He states he feels like the heat over the last few days combined with not having air conditioning contributed to his labored breathing. Denies any nausea vomiting or diarrhea. Chest x-ray shows an possible early developing infiltrate in the left midlung. EKG reveals normal sinus bradycardia with first-degree AV block and a right bundle branch block. Left anterior fascicular. Troponins negative x 3. Patient is currently afebrile, heart rate of 60, blood pressure 127/69 she is 96% on room air. Patient is admitted in observation with a cardiac consultation. Procalcitonin was completed which is less than 0.20. proBNP is not elevated at 563. Troponin level was negative x 3. Cardiology had evaluated this patient recommending to decrease aspirin to 81 mg daily decrease lisinopril to 10 mg daily and Aldactone 12.5 mg daily. He was stable for discharge from their standpoint. He was able to wean off the oxygen and will be discharged home. Review of Systems Constitutional: Denied any fatigue denied any fever. Cardio vascular: denied any chest pain, palpitations Gastrointestinal: denied any nausea, vomiting, diarrhea Pulmonary: Denied any shortness of breath cough Neurologic denied any new focal deficits All inpatient medications were reviewed and appropriate changes in these medications as dictated in the interval history and assessment and plan. PHYSICAL EXAMINATION: GENERAL: The patient is alert and oriented x3, not in any acute distress. Well developed, well nourished. HEENT: Pupils are round and equally reacting to light. EOMI. No scleral icterus. No conjunctival pallor. Normocephalic, atraumatic. No pharyngeal erythema. No thyromegaly. CARDIOVASCULAR: S1 and S2 present. No murmurs, rubs, or gallops. PULMONARY: Chest is clear to auscultation, no wheezing or crackles. ABDOMEN: Soft, nontender, nondistended, normoactive bowel sounds. No palpable organomegaly. MUSCULOSKELETAL: No joint swelling or deformity. EXTREMITIES: No cyanosis, clubbing, or pedal edema. NEUROLOGICAL: Gross neurological examination did not reveal any focal deficits. SKIN: No rashes. Please see medication reconciliation for a list of current medications. Thank you for allowing us to participate in the care of this patient. The impression and plan of care has been dictated by Kadi Kasper, Nurse Practitioner as directed. Dr. Africa MD I have performed a history and physical examination and medical decision making of this patient, discussed the same with the dictator, and agree with the dictators assessment and plan as written, documented as a scribe. Based on total visit time, I have performed more than 50% of this visit. Patient Condition at Discharge: Good Plan - Discharge Summary New Discharge Prescriptions: New Spironolactone [Aldactone] 12.5 mg PO DAILY #30 tab Aspirin 81 mg PO DAILY #30 tab methylPREDNISolone [Medrol Dose Pack] 0 mg PO DIRECTED #1 packet lisinopriL [Zestril] 10 mg PO DAILY #30 tab Continue Tamsulosin [Flomax] 0.4 mg PO HS Torsemide [Demadex] 20 mg PO DAILY #30 tab Metoprolol Tartrate [Lopressor] 12.5 mg PO BID Lidocaine 5% Patch [Lidoderm 5% Patch] 1 patch TRANSDERM DAILY PRN PRN Reason: Pain Empagliflozin [Jardiance] 10 mg PO DAILY Vit C/E/Zn/Coppr/Lutein/Zeaxan [Preservision Areds 2 Softgel] 1 cap PO BID Atorvastatin [Lipitor] 10 mg PO HS amLODIPine [Norvasc] 10 mg PO DAILY 30 Days #30 tab Brinzolamide/Brimonidine Tart [Simbrinza 1%-0.2% Eye Drop] 1 drop BOTH EYES BID Discontinued lisinopriL [Zestril] 20 mg PO DAILY Discharge Medication List Tamsulosin [Flomax] 0.4 mg PO HS 10/24/23 [History] Torsemide [Demadex] 20 mg PO DAILY #30 tab 10/25/23 [Rx] Atorvastatin [Lipitor] 10 mg PO HS 01/12/24 [History] Metoprolol Tartrate [Lopressor] 12.5 mg PO BID 01/12/24 [History] Vit C/E/Zn/Coppr/Lutein/Zeaxan [Preservision Areds 2 Softgel] 1 cap PO BID 01/12/24 [History] amLODIPine [Norvasc] 10 mg PO DAILY 30 Days #30 tab 01/16/24 [Rx] Brinzolamide/Brimonidine Tart [Simbrinza 1%-0.2% Eye Drop] 1 drop BOTH EYES BID 10/03/24 [History] Empagliflozin [Jardiance] 10 mg PO DAILY 10/03/24 [History] Lidocaine 5% Patch [Lidoderm 5% Patch] 1 patch TRANSDERM DAILY PRN 10/03/24 [History] Aspirin 81 mg PO DAILY #30 tab 10/04/24 [Rx] Spironolactone [Aldactone] 12.5 mg PO DAILY #30 tab 10/04/24 [Rx] lisinopriL [Zestril] 10 mg PO DAILY #30 tab 10/04/24 [Rx] methylPREDNISolone [Medrol Dose Pack] 0 mg PO DIRECTED #1 packet 10/04/24 [Rx] Follow up Appointment(s)/Referral(s): Az Nichols MD [STAFF PHYSICIAN] - 1 Week (please call for an appointment tomorrow ) Flor Oshea DO [Primary Care Provider] - 1-2 days (please call for an appointment ) Patient Instructions/Handouts: Heart Failure (GEN), Chest Pain (GEN) Discharge Disposition: HOME WITH HOME HEALTH SERVICES
== END 2024-10-04 20:16 | disposition home health service (06) ==
LOC: EC 11:53 → 6NMEDSUR 13:36
PROVIDERS: ADMIT Internal Medicine; ATTEND Internal Medicine
DX: R07.89 Other chest pain (principal); I11.0 Hypertensive heart disease with heart failure; I50.33 Acute on chronic diastolic (congestive) heart failure; X30.XXXA Exposure to excessive natural heat, initial encounter; R00.1 Bradycardia, unspecified; I45.10 Unspecified right bundle-branch block; I44.0 Atrioventricular block, first degree; I35.2 Nonrheumatic aortic (valve) stenosis with insufficiency; E78.5 Hyperlipidemia, unspecified; E66.9 Obesity, unspecified; Z68.35 Body mass index [BMI] 35.0-35.9, adult; I25.2 Old myocardial infarction; Z79.82 Long term (current) use of aspirin; Z79.84 Long term (current) use of oral hypoglycemic drugs; Z79.899 Other long term (current) drug therapy; Z87.891 Personal history of nicotine dependence; Z88.8 Allergy status to other drugs, medicaments and biological substances; Z91.030 Bee allergy status
CPT/HCPCS: 99285; 36415; 94640; 94760; 93005; 83880; 80061; 80053; 83735; 84484; 85025; 85610; 85730; 84145; 71046; G0378 ×2